=== PATIENT | female | born 1960 | race African-American/Black ===

== ENCOUNTER → 2018-06-15 14:50 | Outpatient (CLI) | payer BC, SELFPAY ==
--- NOTE | 2018-06-15 14:57 | CT_ITS ---
CT abdomen pelvis wo con CLINICAL INDICATION: Hematuria with frequent urination ITS.REASON: HEMATURIA ORDERING PHYSICIAN: Doni Bardales MD PATIENT AGE: 58 years COMPARISON: None TECHNIQUE: Axial images obtained with sagittal and coronal reformats. All CT scans at the facility use one or more dose reduction, viz: automated exposure control, ma/kV adjustment per patient size (including targeted exams where dose is matched to indication, i.e. head), or iterative reconstruction technique. PROCEDURE: Oral Contrast: None IV Contrast: None . FINDINGS: The lung bases are clear. The liver, spleen, adrenal glands, and kidneys have an unremarkable unenhanced CT appearance. No renal calculi. No ureteral calculi. There is slight increase soft tissue density adjacent to the tail the pancreas. This is of questionable clinical significance and may be due to an unopacified vessel. Follow-up with contrast may confirm if clinically warranted. No obvious pancreatic mass. This could be due to small peripancreatic fluid collection as well. No calcified gallstones apparent. Unremarkable appendix. No intestinal obstruction or free air. Urinary bladder decompressed with no stones. No pelvic mass abnormal fluid collection or focal inflammatory change No acute bony anomalies. There is mild anterolisthesis of L5 on S1 of 4 mm. IMPRESSION: 1. No renal or ureteral calculi or hydronephrosis. No obvious renal mass on this unenhanced exam. 2. Slight increased soft tissue density along the tail of the pancreas which could be related to a small peripancreatic fluid collection or unopacified vessel.
== END ==
PROVIDERS: PCP Internal Medicine Adolescent Medicine; Visit Provider Internal Medicine Adolescent Medicine
DX: R31.29 Other microscopic hematuria (principal)
CPT/HCPCS: 74176

== ENCOUNTER → 2019-08-04 16:43 | Outpatient (CLI) | payer BC, SELFPAY ==
--- NOTE | 2019-08-04 16:46 | MM_ITS ---
PROCEDURE: MM DIG SCREENING MAMM BI W/CAD Patient Age:59Y CLINICAL INDICATION: SCREENING 59-year-old. No hormones but no new complaints. Noncontributory family history COMPARISON: [facility] MAMMO SCRN DIGITL BILAT from 07/03/2011 MA MAMMO SCRN DIGITL BILAT from 08/12/2012 MA MAMMO SCRN DIGITL BILAT from 09/20/2013 MA MAMMO SCRN DIGITL BILAT from 05/30/2015 MA MAMMO SCRN DIGITL BILAT from 06/24/[id number] abdomen pelvis wo con from 06/15/2018 TECHNIQUE: Standard CC and MLO images were obtained. R2 CAD reviewed. FINDINGS: Heterogeneous fairly dense breast pattern bilaterally with overall architecture similar to previous studies. No dominant or discrete new mass. Areas of minor nodularity seen bilaterally have been seen before appear reflect baseline ductal and fibroglandular pattern in this patient. Although technique is different on the outside studies of the overall appearance of the breasts is similar with no new areas of significant concern. I would note mammography is of decreased sensitivity in breast of this density and ultrasound can be a useful complement/augment to mammography and breast of this character particularly if any palpable areas present or develope Right breast: But no new areas of significant concern. Areas of minor density and asymmetry today date back to 2012 with no significant change. Small punctate grouping of benign appearing punctate calcifications of o'clock again noted Left Breast: No new areas of significant concern but IMPRESSION: Moderately dense breast but no new areas of significant concern. Overall stable mammogram Bilateral follow-up 1 year recommended BI-RAD Category: 2 Benign Finding(s) FOLLOW-UP: 1YR 1 Year Follow-up (A letter has been sent to the patient regarding results of the study.) Dictated by: Ozzy Douglass MD 08/10/2019 08:44 Electronically signed by Ozzy Douglass MD in [place] 08/10/2019 08:44
== END ==
PROVIDERS: PCP Internal Medicine Adolescent Medicine; Visit Provider Internal Medicine Adolescent Medicine
DX: Z12.31 Encounter for screening mammogram for malignant neoplasm of breast (principal)
CPT/HCPCS: 77067

== ENCOUNTER → 2020-06-01 11:35 | Outpatient (CLI) | payer BC, SELFPAY ==
[2020-06-02 13:02] LABS: Covid-19 Nasal PCR Sendout Lex Not Detected
== END ==
PROVIDERS: Visit Provider Nurse Practitioner Family
DX: Z03.818 Encounter for observation for suspected exposure to other biological agents ruled out (principal); R05 Cough; D86.9 Sarcoidosis, unspecified
CPT/HCPCS: U0004

== ENCOUNTER 2020-10-06 12:04 | Emergency (ER) | payer BC, SELFPAY ==
[2020-10-06 12:10] VITALS: BP 136/86; PULSE 80; RESP 18; TEMP 36.8; O2SAT 98; BMI 27.1
--- NOTE | 2020-10-06 12:32 | HMH.EDUTC ---
[facility] Clinical Impression: Common cold virus Disposition: Home, Self-Care Condition on Discharge: Good Instructions: How to Avoid a Cold or Flu, Common Cold Additional Instructions: No sign of a bacterial infection. Likely viral. Viruses can take 7-14 days to run their course. Nasal saline and bulb syringe or nose Chapis to remove nasal drainage to help with nasal congestion. Hard to eat, drink, sleep with nasal congestion so important to keep this cleaned out. Monitor temp. Tylenol or Motrin as needed for pain or fever Encourage fluids, water, Gatorade, Powerade, Pedialyte if infant/toddler/child Warm salt water gargles Warm fluids Sore throat lozenges Sleep elevated Humidifier/vaporizer Your covid swab was sent. These results are typically sent to the primary care. Be sure you follow-up in 2-3 days if no improvement so we can review the results and treat if necessary if you do not have a primary care, I recommend to get 1 but in the meantime, call for results. Follow-up immediately for new or worsening symptoms or no noticeable improvement over the next 48-72 hours. isolate until test results are known to be neg Referrals: Doni Bardales MD [Primary Care Provider] - Time of Disposition: 12:35 Medical Decision Making - Manan Inquiry Pt receiving controlled substance: No Vital Signs: 10/06/20 12:10 Temperature 98.2 F Temperature Source Oral Pulse Rate [Right Brachial] 80 Respiratory Rate 18 Blood Pressure [Right Arm] 136/86 Blood Pressure Mean [Right Arm] 102 Blood Pressure Source [Right Arm] Automatic Cuff Blood Pressure Position [Right Arm] Sitting 02 Sat by Pulse Oximetry 98 Oxygen Delivery Method Room Air Orders (Tests/Meds): ORDERS Category Date Time Status Covid-19 Nasal PCR Sendout [facility] 10/06/20 12:09 Ordered [facility] H[place] - General Chief complaint: [facility] Stated complaint: covid test Time Seen by Provider: 10/06/20 12:36 Mode of Arrival: Ambulatory Source of Information: Patient Limitations: No Limitations Description of Symptoms (Recalled from Triage Doc. by RN): PATIENT REQUESTING COVID TEST. C/O COUGH. DENIES EXPOSURE HEENT Symptoms (Recalled from RN notes): No Resp Symptoms (Recalled from RN notes): Yes Skin Symptoms (Recalled from RN notes): No MS Symptoms (Recalled from RN notes): No Functional Status (Recalled from RN notes): WNL - History of Present Illness Provider Complaint: 60 yr old female presents for covid test. pt states she only has a scratchy throat but would like to be tested. - Related Data Home Medications Medication Instructions Recorded Confirmed acetaminophen 325 mg capsule 325 mg PO Q6H PRN 07/15/18 lisinopril 2.5 mg tablet 2.5 mg PO DAILY 07/15/18 simvastatin 5 mg tablet 5 mg PO QHS 07/15/18 verapamil 40 mg tablet 40 mg PO ONCE tab 07/15/18 Allergies Allergy/AdvReac Type Severity Reaction Status Date / Time Sulfa (Sulfonamide Allergy Unknown Verified 10/06/20 12:28 Antibiotics) sulfamethoxazole Allergy Unknown Verified 10/06/20 12:28 trimethoprim Allergy Unknown Verified 10/06/20 12:28 tuberculin,PPD,multi-puncture Allergy Unknown I-RASH Verified 10/06/20 12:28 - Worker's Comp Is this a Worker's Comp case?: No [facility] History - Hepatitis A Screen Drug use history?: No High risk sexual behaviors?: No History of sexually transmitted infection?: No Currently employed?: No Childcare worker?: No Do you have indoor plumbing?: Yes Do you have electricity?: Yes Attestation statement:: This patient has been screened for Hepatitis A risk factors. I have reviewed the patient's past medical history: Yes - Social History Smoking Status: Smoker, status unknown Alcohol Intake: never Occupational Status: other ROS Obtained: Yes Systems reviewed as appropriate & no additional complaints - Constitutional Constitutional: Reports system reviewed and no additional complaints, except as docu,
[2020-10-06 12:36] VITALS: BP 136/86; PULSE 80; RESP 18; TEMP 36.8; O2SAT 98
[2020-10-07 09:07] LABS: Covid-19 Nasal PCR Sendout UK Not Detected
== END 2020-10-06 12:40 | disposition home or self-care (01) ==
PROVIDERS: Emergency Provider Nurse Practitioner Family; PCP Internal Medicine Adolescent Medicine
DX: Z20.828 Contact with and (suspected) exposure to other viral communicable diseases (principal); J00 Acute nasopharyngitis [common cold]; I10 Essential (primary) hypertension; E78.5 Hyperlipidemia, unspecified
CPT/HCPCS: 99201; U0003

== ENCOUNTER → 2021-04-04 14:19 | Outpatient (CLI) | payer BC, SELFPAY ==
--- NOTE | 2021-04-04 14:24 | XR_ITS ---
PROCEDURE: XR CHEST 2V CLINICAL HISTORY: COUGH COMPARISON: No exams were available for comparison FINDINGS: The cardiomediastinal silhouette and pulmonary vascularity are within normal limits. The lungs are clear without infiltrates, suspicious nodules, or pleural effusions. No acute bony abnormalities. IMPRESSION: No acute findings. Dictated by: Vick Sands MD 04/04/2021 14:42 Vick Sands MD in [place] 04/04/2021 14:42
== END ==
PROVIDERS: PCP Internal Medicine Adolescent Medicine; Visit Provider Internal Medicine Adolescent Medicine
DX: R05 Cough (principal)
CPT/HCPCS: 71046

== ENCOUNTER → 2021-08-21 09:52 | Outpatient (CLI) | payer BC, SELFPAY | PROVIDERS: PCP Internal Medicine Adolescent Medicine; Visit Provider Internal Medicine Adolescent Medicine | DX: U07.1 COVID-19 (principal); Z23 Encounter for immunization | CPT/HCPCS: 96365 ==

== ENCOUNTER 2021-08-21 10:18 | Emergency (ER) | payer BC, SELFPAY ==
[2021-08-21] VITALS (8 sets, daily range): BP systolic 132–150; BP diastolic 76–83; PULSE 61–70; RESP 16–22; TEMP 37.1–37.2; O2SAT 84–95; BMI 30.4
--- NOTE | 2021-08-21 10:42 | XR_ITS ---
PROCEDURE: XR CHEST PORTABLE CLINICAL HISTORY: SOA, low O2 sats COMPARISON: CR XR CHEST 2V from 04/04/[address] ANGIO CHEST PE PROTOCOL from 08/21/2021 FINDINGS: The cardiomediastinal silhouette and pulmonary vascularity are within normal limits. Patchy infiltrates are present in both lower lobes left more extensive than right with atelectatic changes in the left lower lobe. No evidence of pneumothorax or pleural effusion. No acute bony anomalies IMPRESSION: Bilateral pneumonia left more extensive than right with left-sided atelectatic changes. Dictated by: Vick Sands MD 08/21/2021 11:47 Vick Sands MD in [place] 08/21/2021 11:47
--- NOTE | 2021-08-21 10:45 | PC.NURSE ---
Pt placed on nasal cannula at 5lpm and sats increased to 91%.
--- NOTE | 2021-08-21 10:49 | HMH.EDGENADL ---
ED Disposition Clinical Impression: Pneumonia due to COVID-19 virus, Hypoxia Disposition: Home, Self-Care Condition on Discharge: Fair Instructions: DI for COVID-19 (Suspected or Confirmed ) Additional Instructions: Oxygen as ordered. Continue Decadron as prescribed. Dr. Bardales's office will contact you tomorrow for a telehealth visit. Return to the emergency department if worsening shortness of breath. COVID-19 Isolation: Isolate yourself for a MINIMUM of 10 days: What to do: Monitor your symptoms. If you have an emergency warning sign (including trouble breathing), seek emergency medical care immediately. Stay in a separate room from other household members, if possible. Use a separate bathroom, if possible. Avoid contact with other members of the household and pets. Don?t share personal household items, like cups, towels, and utensils. Wear a mask when around other people if able. You can be around others AFTER: 10 days since symptoms first appeared AND 24 hours with no fever without the use of fever-reducing medications AND Other symptoms of COVID-19 are improving Referrals: Doni Bardales MD [Primary Care Provider] - - Critical Care Critical Care Time: No Attestation: On 08/21/21, the high probability of a clinically significant, sudden or life threatening deterioration of the following system(s) required my full and direct attention, intervention and personal management. The time I documented below is in addition to time spent performing reported procedures but includes the following listed in this critical care notation. Medical Decision Making - Manan Inquiry Pt receiving controlled substance: No Vital Signs: 08/21/21 10:19 08/21/21 11:00 Temperature 98.9 F Temperature Source Oral Pulse Rate 70 Pulse Rate [Right] 66 Respiratory Rate 22 Blood Pressure 140/79 Blood Pressure [Right Arm] 136/82 Blood Pressure Mean [Right Arm] 100 Blood Pressure Source [Right Arm] Automatic Cuff Blood Pressure Position [Right Arm] Sitting 02 Sat by Pulse Oximetry 84 L 94 L Oxygen Delivery Method Room Air Nasal Cannula Oxygen Flow Rate (LPM) 5 - Lab Data Lab Results 08/21/21 10:25: WBC 8.8, RBC 4.46, Hgb 12.2, Hct 37.3, MCV 83.5, MCH 27.4, MCHC 32.8, RDW 13.8, Plt Count 354, MPV 8.5, Neut % (Auto) 85.1 H, Lymph % (Auto) 10.4, [place] % (Auto) 4.2, Eos % (Auto) 0.0 L, Baso % (Auto) 0.2, Neut # (Auto) 7.5, Lymph # (Auto) 0.9, [place] # (Auto) 0.4, Eos # (Auto) 0.0, Baso # (Auto) 0.0, Total Counted 100, Neutrophils % (Manual) 85 H, Lymphocytes % (Manual) 10, Monocytes % (Manual) 5, Platelet Estimate Normal, RBC Morphology Normal 08/21/21 10:25: Sodium 141, Potassium 3.5, Chloride 102, Carbon Dioxide 29, Anion Gap 13.5, BUN 21 H, Creatinine 0.70, Estimated Creat Clear 66, Estimated GFR 85, Est GFR ( Amer) 102, Glucose 142 H, Calcium 9.2, Total Bilirubin 0.3, AST 62 H, ALT 43, Alkaline Phosphatase 85, Troponin I < 0.01, Total Protein 8.1, Albumin 4.2, Globulin 3.9 H, Albumin/Globulin Ratio 1.1 08/21/21 11:06: SARS-CoV-2 (PCR) Detected A, Influenza A Untype (PCR) Not detected, Influenza Type B (PCR) Not detected Result diagrams: 08/21/21 10:25 08/21/21 10:25 Orders (Tests/Meds): ED MEDICATIONS Discontinued Medications Generic Name Dose Route Start Last Admin Trade Name Freq PRN Reason Stop Dose Admin Dexamethasone Sodium Phosphate 10 mg 08/21/21 12:10 Dexamethasone 4mg/Ml 1ml Vial IV 08/21/21 12:11 ONCE ONE Iopamidol 70 ml 08/21/21 11:31 08/21/21 11:25 Iopamidol-370 (76%);100ml Bottle IV 08/21/21 11:32 70 ml ONCE ONE Administration Sodium Chloride 40 ml 08/21/21 11:31 08/21/21 11:25 0.9 % Sodium Chloride 50 Ml Vial IV 08/21/21 11:32 40 ml ONCE ONE Administration Sodium Chloride 10 ml 08/21/21 11:31 08/21/21 11:25 Sodium Chloride 0.9% 10ml Syr (Rad Only) IV 08/21/21 11:32 10 ml ONCE ONE Administration ORDERS C
--- NOTE | 2021-08-21 10:52 | CT_ITS ---
PROCEDURE: CT ANGIO CHEST PE PROTOCOL CLINCIAL INDICATION: covid 19, hypoxia, r/o PE COMPARISON: No exams were available for comparison TECHNIQUE: IV Contrast: 70ML Isovue 370 Axial images obtained with sagittal and coronal reformats. All CT scans at the facility use one or more dose reduction, viz: automated exposure control, ma/kV adjustment per patient size (including targeted exams where dose is matched to indication, i.e. head), or iterative reconstruction technique. FINDINGS: HEART AND MEDIASTINAL STRUCTURES: No definite pulmonary embolus. Soft tissue density noted along the left lateral aspect of the main pulmonary artery felt to be related to pulsation artifact. Not typical for pulmonary embolus. No evidence of aortic aneurysm or dissection. No mediastinal or hilar mass or adenopathy. LUNGS AND PLEURAL SPACES: Multifocal bilateral ground-glass opacities consistent with Covid19 pneumonia with atelectatic changes in the lung bases and along the left lower lobe posteriorly. No evidence of pneumothorax or pneumomediastinum. No effusions. The multifocal infiltrates could obscure an underlying lung lesion. BONY STRUCTURES: No acute bony abnormalities apparent. UPPER ABDOMEN: Unremarkable. ADDITIONAL FINDINGS: No other significant abnormalities. IMPRESSION: No definite pulmonary embolus. Bilateral multifocal ground-glass infiltrates with atelectasis consistent with Covid19 pneumonia Dictated by: Vick Sands MD 08/21/2021 11:44 Vick Sands MD in [place] 08/21/2021 11:44
[2021-08-21 10:54] LABS: Basophils % 0.2 % (0.1-2.0); Hematocrit 37.3 % (37.0-47.0); Hemoglobin 12.2 g/dL (12.2-16.2); Lymphocytes # 0.9 K/mm3 (0.7-4.5); Lymphocytes % 10.4 % (10-50); Mean Corpuscular HGB Conc 32.8 g/dL (31.8-35.4); Mean Corpuscular Hemoglobin 27.4 pg (27.0-31.2); Mean Corpuscular Volume 83.5 fl (81-99); Mean Platelet Volume 8.5 fl (7.4-10.4); Monocytes # 0.4 K/mm3 (0.1-1.0); Monocytes % 4.2 % (1.7-9.3); Neutrophils # 7.5 K/mm3 (1.8-7.8); Neutrophils % 85.1 % (37.0-80.0); Platelet Count 354 K/mm3 (142-424); Red Blood Count 4.46 M/mm3 (4.20-5.40); Red Cell Distribution Width 13.8 % (11.5-17.5); White Blood Count 8.8 K/mm3 (4.8-10.8)
[2021-08-21 10:57] LABS: Alanine Aminotransferase 43 U/L (12-78); Albumin Level 4.2 g/dl (3.5-5.0); Albumin/Globulin Ratio 1.1 (1.1-1.8); Alkaline Phosphatase 85 U/L (38-126); Anion Gap 13.5 mEq/L (5-15); Aspartate Amino Transferase 62 U/L (14-36); Bilirubin,Total 0.3 mg/dl (0.2-1.3); Blood Urea Nitrogen 21 mg/dl (7-17); Calcium 9.2 mg/dl (8.4-10.2); Carbon Dioxide 29 mmol/L (22.0-30.0); Chloride 102 mmol/L (98-107); Creatinine Clearance Estimated 66 mL/min (50-200); Estimated Glomerular Filt Rate 85 ml/min (>60); GFR (African American) 102 ML/MIN (>60); Globulin 3.9 g/dL (1.3-3.2); Glucose 142 mg/dl (74-100); Potassium 3.5 mmoL/L (3.5-5.1); Sodium 141 mmol/L (136-145); Total Protein,Serum 8.1 g/dl (6.3-8.2)
[2021-08-21 11:07] LABS: MANUAL DIFFERENTIAL MANUAL DIFFERENTIAL (MANUAL DIFF)
[2021-08-21 11:10] LABS: Troponin I < 0.01 ng/ml (0.00-0.034)
[2021-08-21 11:11] LABS: Influenza A, PCR Not Detected (NotDetected); Influenza B, PCR Not Detected (NotDetected)
[2021-08-21 11:13] LABS: Lymphocytes % 10 % (10-50); Monocytes % 5 % (2-9); Neutrophils % 85 % (42-76); Platelet Estimate Normal; RBC Morphology Normal; Total Cells Counted 100
--- NOTE | 2021-08-21 11:38 | PC.NURSE ---
pt returned from CT
[2021-08-21 11:50] LABS: Coronavirus 19, PCR Detected (NotDetected)
--- NOTE | 2021-08-21 12:01 | PC.NURSE ---
Called Dr. Bardales office. Advised he would call back
[2021-08-21 12:28] LABS: Erythrocyte Sedimentation Rate 127 mm/hr (0-30)
--- NOTE | 2021-08-21 12:42 | SW/DCPLANNER ---
Addendum entered by Rubina Braun 08/21/21 13:28: Ramona Landa has stated that patient information/order has been reviewed and will be delivered to ED. Original Note: Patient information/order has been faxed to [facility] for home O2 and portable tank at 5L. I will follow up with [facility] once patient information is reviewed.
--- NOTE | 2021-08-21 12:47 | PC.NURSE ---
care management arranging home oxygen for pt.
--- NOTE | 2021-08-21 13:43 | PC.NURSE ---
[facility] arrived and provided pt with O2 tank and nasal cannula and gave instruction on the tank and use. Pt also received incentive spirometer from respiratory therapy and was educated on use. Pt able to return demonstration. Upon discharge I explained to pt that if she developed any severe SOA or chest pain/tightness she needed to return to the emergency room DEJAN and if she was unable to get here by POV then she needed to call 911 immediately. Pt understood instructions. Pt was able to get up and dress herself and reapply O2 correctly. Pt maintained sats in the 90's while on the O2. PT able to ambulate without assistance out of ED
[2021-08-21 14:14] LABS: C-Reactive Protein 29.3 mg/L (0-4)
== END 2021-08-21 14:22 | disposition home or self-care (01) ==
PROVIDERS: Emergency Provider Emergency Medicine; PCP Internal Medicine Adolescent Medicine
DX: U07.1 COVID-19 (principal); J12.82 Pneumonia due to coronavirus disease 2019; R09.02 Hypoxemia; I10 Essential (primary) hypertension; E78.5 Hyperlipidemia, unspecified
CPT/HCPCS: 71045; 71275; 80053; 84484; 85007; 85025; 85651; 86140; 96374; 99284; C9803; Q9967; U0003; U0005

== ENCOUNTER → 2021-11-14 14:47 | Outpatient (CLI) | payer BC, SELFPAY | PROVIDERS: Visit Provider Nurse Practitioner | DX: Z20.822 Contact with and (suspected) exposure to COVID-19 (principal) | CPT/HCPCS: C9803; U0003; U0005 ==

== ENCOUNTER 2022-01-20 15:00 | Outpatient (RCR) | payer BC, SELFPAY ==
--- NOTE | 2021-11-19 15:31 | HMH.PTOPEV ---
PT Outpatient Evaluation Rehab PT Outpatient Evaluation Start: 11/19/21 15:21 Freq: Status: Active Protocol: Document 11/19/21 15:21 RONI (Rec: 11/19/21 15:31 RONI [id number]) Electronically Signed By Toni Raymond, PT 11/19/21 15:21 Outpatient Therapy Subjective History Subjective History Pt reports insidious onset right knee pain beginning ~2 months ago. Pt reports medial aspect right knee pain, with clicking/popping, some referred pain into medial HS and calf mm areas. Pt reports stiffness in right knee with [id number] t/f after prolonged sitting. Chief Complaint Pain,Stiff,Clicks,Swelling, Weakness Symptom Type Ache,Sharp,Dull Symptoms Relieved By Rest/Positioning,Prescription Meds Symptoms Aggravated By Standing,Physical Activity, Walking Prior Functional Limitations Housework,Standing,Squatting, Walking,Stairs Current Functional Limitations Housework,Standing,Squatting, Walking,Stairs Symptom Description Constant but Variable Level of pain today (0-10) 5 Pain scale - at its best (0-10) 4 Pain scale - at its worst (0-10) 7 Hip/Knee Eval Gait Observation General Gait Pattern Observation Antalgic Gait Assistive Device Assistive Devices None / NA Palpation Tenderness right Knee Palpation Finding Tenderness Knee Palpation Overall Comment medial jt line @MCL 2-3/4, pes anserine 3/4, semimem. 3/4 MMT Hip Flexion Strength Grade 4 Good Hip Abduction Strength Grade 4- Good- Hip Adduction Strength Grade 4- Good- Hip Extension Strength Grade 4 Good Hip External Rotation Strength Grade 4 Good Hip Internal Rotation Strength Grade 4- Good- Knee Extension Strength Grade 5 Normal Knee Flexion Strength Grade 5 Normal ROM left Knee Flexion Active Range of Motion ( 0-130 degrees) right Knee Flexion Active Range of Motion ( 0-121 degrees) Knee ROM Limitations Soft Tissue Tightness,Pain Effusion joint effusion knee exam standard right Mid - Patellar Circumerential Measure ( 43 cm) Special Tests Knee Valgus Stress Test Negative Left,Positive Right Outpatient Therapy Assessment Impairments Problems/Impairmments Palpation Tenderness,Impaired Range of Motion,Impaired
--- NOTE | 2021-12-24 16:04 | HMH.RHREAS ---
Rehab Reassessment Rehab OP Re-assessment Start: 12/24/21 15:22 Freq: Status: Active Protocol: Document 12/24/21 16:00 RONI (Rec: 12/24/21 16:04 RONI [id number]) Electronically Signed By Toni Raymond, PT 12/24/21 16:00 Rehab Re-assessment Subjective Subjective Pt reports improved frequency in right knee pain since I eval, and reports 5-6/10 right knee pain (medial aspect) w/ activity on VAS Objective Objective Notes AROM: RIGHT KNEE FLX 0-130 MMT: R HIP FLX 4+/5, R HIP ABD 4-4+/5, R HIP ADD 4/5 W/PAIN, R HIP EXT 4/5 TTP: R PES ANSERINE 2/4, R MCL 2/4, R MEDIAL HS INSERTION 2/ 4 GAIT: WFL ON LEVEL TERRAIN Assessment Progress Assessment Slower Than Expected Assessment Notes IMPROVED ROM, STRENGTH, GAIT, AND SLIGHT IMPROVEMENT IN TTP Patient goals met STG'S 06/25 LTG'S 01/25 Goals Not Met STG'S 12/26, LTG'S 07/28 Plan Plan Pt to continue w/skilled P.T. to make further improvements in strength, TTP, ROM, and gait to allow for optimal function Frequency of Therapy 2-3x/wk Duration of therapy 3-4wks Time and Billing Re-Eval Time 15 Re-Eval Billing Units 1 PHYSICIAN CERTIFICATION: I certify the specified therapy services for Bárbara Agustin are required, authorized, and reviewed every 30 days.
== END 2022-01-20 15:05 | disposition home or self-care (01) ==
LOC: PT 15:00
PROVIDERS: PCP Internal Medicine Adolescent Medicine; Visit Provider Internal Medicine Adolescent Medicine
DX: M25.561 Pain in right knee (principal)
CPT/HCPCS: 97010; 97014; 97033; 97035; 97110; 97163; 97164; G0283

== ENCOUNTER 2022-08-13 00:40 | Inpatient (IN) | payer BC, SELFPAY ==
[2022-08-13] VITALS (46 sets, daily range): BP systolic 99–141; BP diastolic 60–78; PULSE 60–109; RESP 16–29; TEMP 36.7–37.7; O2SAT 96–100; BMI 30.9; BMI 31.2
--- NOTE | 2022-08-13 00:47 | PC.NURSE ---
MD at bedside during triage
--- NOTE | 2022-08-13 01:02 | HMH.EDGENADL ---
Discharge Plan Disposition Patient Disposition: Admitted As Inpatient Chief Complaint: Dental/Oral Prescriptions Prescriptions: No Action Suprep Bowel Prep Kit 17.5-3.13-1.6 gram recon soln See Rx Instructions PO .COMPLEX Qty: 177 0RF Rx Instructions: DILUTE; drink full amount early evening before AND next morning at least 2 hr before procedure; follow w 32 oz. water PO Referrals Follow up/Referrals: Doni Bardales MD [Primary Care Provider] - See instructions Clinical Impressions Clinical Impression: Angioedema due to angiotensin converting enzyme inhibitor (ANGELICA-I), Acute airway obstruction Instructions Patient Instructions: DI for Angioedema Discharge ED Provider: Anastacio Burk General Adult HPI General Chief complaint: Dental/Oral Stated complaint: Tongue swelling Time Seen by Provider: 08/13/22 01:02 Mode of Arrival: Ambulatory Source of Information: Patient and Medical Record Limitations: No Limitations Description of Symptoms (Recalled from ER Triage Doc. by RN): Pt reports tounge swelling that started at 7pm and has gotten worse. Swelling is more prominent on the left side of tounge. Pt reports having no new allergies, no known contact with known allergies. She says she had some congestion and a cough and was given promethazine from PCP. History of Present Illness HPI narrative: pt with swollen tongue which started 1900 and has increased - no other c/o and is on lisinopril - no other c/o Onset (ago): hour(s) Location: mouth Severity: moderate Associated symptoms: denies other symptoms Related Data Home Medications Medication Instructions Recorded Confirmed acetaminophen 325 mg capsule 325 mg PO Q6H PRN 07/15/18 lisinopril 2.5 mg tablet 2.5 mg PO DAILY 07/15/18 simvastatin 5 mg tablet 5 mg PO QHS 07/15/18 verapamil 40 mg tablet 40 mg PO ONCE 07/15/18 Previous Rx's Medication Instructions Recorded sodium,potassium,mag sulfates 17.5 See Rx Instructions PO .COMPLEX 01/13/22 gram-3.13 gram-1.6 gram oral soln #177 mL (Suprep Bowel Prep Kit) Allergies Allergy/AdvReac Type Severity Reaction Status Date / Time Sulfa (Sulfonamide Allergy Unknown Verified 08/21/21 10:47 Antibiotics) sulfamethoxazole Allergy Unknown Verified 08/21/21 10:47 trimethoprim Allergy Unknown Verified 08/21/21 10:47 tuberculin,PPD,multi-puncture Allergy Unknown I-RASH Verified 08/21/21 10:47 PFSH PFSH Social History (Updated 08/13/22 @ 03:38 by Zack Phillips CRNA) Smoking Status: Never smoker alcohol intake: never substance use type: denies use current occupational status: other Travel in the last 8 weeks: None ROS Obtained: Yes All systems reviewed & no additional complaints except as documented Physical Exam General General appearance: alert Head Head exam: normocephalic Eye Eye exam: Present PERRL and EOMI ENT ENT exam: Present mucous membranes moist and other (swollen tongue - airway patent ) Neck Neck exam: Present full ROM Respiratory Respiratory exam: Present normal lung sounds bilaterally; Absent respiratory distress Cardiovascular Cardiovascular exam: Present regular rate Abdominal Exam Abdominal exam: Present soft Extremities Exam Extremities exam: Present full ROM Neurological Exam Neurological exam: Present alert and CN II-XII intact Skin Skin exam: Absent rash Lymphatic Lymphatic Findings: no adenopathy Medical Decision Making Medical Records Medical records reviewed: Yes I reviewed the patient's medical records. Manan Inquiry Pt receiving controlled substance: No Vital Signs: 08/13/22 00:47 08/13/22 01:00 08/13/22 02:00 Temperature 99.9 F H Temperature Source Oral Pulse Rate 98 H 78 Pulse Rate [Right Radial] 109 H Respiratory Rate 16 17 Blood Pressure 117/73 122/78 Blood Pressure [Right Arm] 141/70 H Blood Pressure Mean [Right Arm] 93 Blood Pressure Source [Right Arm] Automatic Cuff Blood Pressure Position [Right
--- NOTE | 2022-08-13 01:09 | PC.NURSE ---
phone call to [facility], spoke with Leah, she is having Dr. maciel. Dr. Burk on phone with Dr. Jolly
--- NOTE | 2022-08-13 02:14 | PC.NURSE ---
Wm speaking to Bradley at this time.
--- NOTE | 2022-08-13 02:40 | PC.NURSE ---
Pt was moved to room 2 for better visualization and possible intubation.
[2022-08-13 02:53] LABS: Basophils # 0.1 K/mm3 (0-0.2); Basophils % 1.1 % (0.1-2.0); Eosinophils # 0.3 K/mm3 (0.0-0.4); Eosinophils % 2.8 % (0.1-12.0); Hematocrit 38.9 % (37.0-47.0); Hemoglobin 12.2 g/dL (12.2-16.2); Lymphocytes # 4.2 K/mm3 (0.7-4.5); Mean Corpuscular HGB Conc 31.4 g/dL (31.8-35.4); Mean Corpuscular Hemoglobin 26.8 pg (27.0-31.2); Mean Corpuscular Volume 85.2 fl (81-99); Mean Platelet Volume 8.2 fl (7.4-10.4); Monocytes # 0.4 K/mm3 (0.1-1.0); Monocytes % 4.2 % (1.7-9.3); Neutrophils # 4.4 K/mm3 (1.8-7.8); Platelet Count 411 K/mm3 (142-424); Red Blood Count 4.57 M/mm3 (4.20-5.40); Red Cell Distribution Width 13.9 % (11.5-17.5); White Blood Count 9.3 K/mm3 (4.8-10.8)
[2022-08-13 02:54] LABS: Chloride 96 mmol/L (98-107); Sodium 143 mmol/L (136-145)
--- NOTE | 2022-08-13 02:54 | PC.NURSE ---
Spoke to [facility] regarding order for sub-q epi. Was instructed to use the 1mg/1ml ampule and the dose to be given is 0.3mg. Verified with WU Jimenez RN and .
[2022-08-13 02:57] LABS: Blood Urea Nitrogen 15 mg/dl (7-17); Creatinine Clearance Estimated 69 mL/min (50-200); Estimated Glomerular Filt Rate 63 ml/min (>60); GFR (African American) 76 ML/MIN (>60)
[2022-08-13 02:58] LABS: Anion Gap 15.9 mEq/L (5-15); Calcium 9.4 mg/dl (8.4-10.2); Carbon Dioxide 34 mmol/L (22.0-30.0); Glucose 104 mg/dl (74-100)
[2022-08-13 03:01] LABS: Potassium 2.9 mmoL/L (3.5-5.1)
--- NOTE | 2022-08-13 03:21 | PC.NURSE ---
On phone with Leah with transfer center per Dr. Burk's request now that patient is intubated
--- NOTE | 2022-08-13 03:25 | XR_ITS ---
PROCEDURE INFORMATION: Exam: XR Chest Exam date and time: 08/13/2022 3:31 AM Age: 62 years old Clinical indication: Device placement; Ett placement (vent status); Additional info: Post intubation TECHNIQUE: Imaging protocol: Radiologic exam of the chest. Views: 1 view. COMPARISON: CR XR CHEST PORTABLE 08/21/2021 11:39 AM FINDINGS: Tubes, catheters and devices: New endotracheal tube tip is 3.5 cm above the raul. Lungs: Low lung volumes. Few residual bilateral perihilar opacities. Interval resolution of previously seen bilateral lower lung field patchy opacities. Pleural spaces: No pneumothorax. No pleural effusion. Heart/Mediastinum: Heart not enlarged. Bones/joints: Bones are unremarkable. IMPRESSION: Residual bilateral perihilar infiltrates.
--- NOTE | 2022-08-13 03:27 | EXP.ANES.CKL ---
[facility] Social History Smoking Status: Never smoker alcohol intake: never substance use type: denies use current occupational status: other Travel in the last 8 weeks: None [facility] Anesthesia Checklist Patient Identification Patient Identification: Arm Band Structural Data Admitted From: Emergency Dept Planned Operative Procedure/s: Emergent Intubation Consent for Planned Operative Procedure(s) Verified: Yes Verified Documents: Surgical Consent and History and Physical Additional verifications Anesthesia Reactions: No Airway Assessment C-Spine Mobility Assessed: Yes (Tongue severely swollen d/t ANGELICA induced angioedema) TMJ Mobility Assessed: Yes Dentition: Poor Dentition Neurological Assessment Level of Consciousness: Awake and Alert Anesthesia Plan Anesthesia Risk discussed: Yes Anesthesia Plan: Verified ASA Class: III (E) Anesthesia Type: None (Emergent Intubation) Preoperative Comments Pre-Operative Comments: ANGELICA induced angioedema. Called for emergent intubation. Plan of care discussed with pt and pt verbalized understanding. Multiple attempts at awake intubation with glidescope/bougie + versed/ketamine/cetacaine spray but unsuccessful. After ~15-20 minutes, decision made for pt to go to sleep with propofol and succinylcholine. 100 mg Propofol IV, 120 mg Succinylcholine, unable to get a view with glidescope #3, so #4 LMA inserted with success d/t O2 sats dropping. 02 up to 100%, LMA then removed, DVL with Layne 2 blade, Grade 3-4 view, Bougie passed through vocal cords and then 7.0 ETT passed over bougie. + bilateral breath sounds, + ETCO2. ETT taped at 22cm at the lip on the right side.
--- NOTE | 2022-08-13 03:35 | PC.NURSE ---
[facility] transfer center advises they would work on getting pt a bed
[2022-08-13 03:48] LABS: Coronavirus 19, PCR Not Detected (NotDetected); Influenza A, PCR Not Detected (NotDetected); Influenza B, PCR Not Detected (NotDetected)
--- NOTE | 2022-08-13 04:12 | XR_ITS ---
PROCEDURE INFORMATION: Exam: XR Abdomen Exam date and time: 08/13/2022 4:26 AM Age: 62 years old Clinical indication: Device placement; Gi device; Other: Og tube; Additional info: Og placement TECHNIQUE: Imaging protocol: Radiologic exam of the abdomen. Views: Frontal supine view of the abdomen. 1 View. COMPARISON: ABDPELWO CT abdomen pelvis wo con 06/15/2018 3:07 PM FINDINGS: Tubes, catheters and devices: New nasogastric tube in good position with tip and side hole overlying the left upper quadrant of the abdomen and stomach. Gastrointestinal tract: Bowel gas pattern unremarkable. Bones/joints: Unremarkable. Other findings: Overlying monitoring cables. IMPRESSION: Non acute findings.
--- NOTE | 2022-08-13 05:35 | PC.NURSE ---
attempted to call at this time. No answer.
--- NOTE | 2022-08-13 05:53 | PC.NURSE ---
New verbal orders from Wm to stop propofol gtt and start fentanyl gtt and versed gtt per protocol
--- NOTE | 2022-08-13 05:58 | PC.NURSE ---
12Fr F/C inserted at this time.
[2022-08-13 06:02] LABS: Microscopic, Urine URINE MICROSCOPIC (MICROSCOPIC)
[2022-08-13 06:09] LABS: Appearance,Urine CLEAR (Clear); Bilirubin,Urine Negative (Negative); Blood, Urine TRACE-I (Negative); Color,Urine YELLOW (Yellow); Glucose,Urine (UA) Negative (Negative); Ketones,Urine 1+ (Negative); Leukocyte Esterase,Urine Negative (Negative); Nitrate,Urine Negative (Negative); Protein,Urine Negative (Negative)
--- NOTE | 2022-08-13 06:20 | PC.NURSE ---
Attempted to call son and again with no reply. Message was left with .
[2022-08-13 06:31] LABS: Bacteria,Urine Trace /lpf
[2022-08-13 06:32] LABS: Hyaline Casts,Urine Occasional #/lpf (0); RBC,Urine Occasional #/hpf (0-3)
--- NOTE | 2022-08-13 06:32 | PC.NURSE ---
Able to get ahold of and obtain over the phone consent for FFP. Verified with ADE Ruiz.
[2022-08-13 06:41] LABS: ABG Base Excess 7.8 mmol/L (-2.4-2.3); ABG HCO3 27.8 mmhg (22.0-26.0); ABG Oxygen Saturation 99 % (90-100); ABG PO2 105.1 mmhg (80-100); ABG TCO2 28.5 mmhg (23-27)
[2022-08-13 06:46] LABS: Allen's Test ACCEPTABLE; Oxygen 35 %; PEEP 5; Source R RADIAL; Tidal Volume 420; Vent Rate 20
--- NOTE | 2022-08-13 07:16 | PC.NURSE ---
Propofol stopped and fentanyl gtt and versed gtt started at this time per JAN.
--- NOTE | 2022-08-13 07:29 | PC.NURSE ---
0252-YASHIRA Carlson at [facility] for intubation. Pt has signed procedure consent. Meds given by YASHIRA during procedure (see procedure note). 0319- Pt intubated after multiple attempts. 7.0ett is secure at 22cm at the lip. Chest xray taken at this time w/ MD stating placement looks good. Will await radiology report. 16f OG inserted and clamped. Awaiting radiology report to confirm placement. 14f smalls inserted by ADE Bush (see note) 0328-Propofol gtt started at 10mcg/kg/min. Titrated Q5min until pt reached 45mcg/kg/min w/o desired response. Pt RASS score +2 to +1. CPOT of 6to7. MD verbal orders to change to Versed gtt and fentanyl gtt.
--- NOTE | 2022-08-13 07:39 | PC.NURSE ---
[facility] called and wanted to know if they were still needed on stand by. the answerr to that question was yes. still neeed to be on standby
--- NOTE | 2022-08-13 07:41 | PC.NURSE ---
[facility] called and advised that they needed to take a scene flight and due to the length of standby we are to call back when were ready
--- NOTE | 2022-08-13 07:49 | PC.NURSE ---
RT changed vent settings to BP=279 R=16 O2=30% PEEP=5
--- NOTE | 2022-08-13 07:51 | PC.NURSE ---
contacted at this time to check on status of pt transfer. Spoke with [facility] staff states pt is on the waiting list for an ICU bed and they have no estimated time of when a bed will be available. Notified ER .
--- NOTE | 2022-08-13 08:04 | PC.NURSE ---
FFP verified and started at 0658. Verified with ADE Dee at bedside.
--- NOTE | 2022-08-13 08:04 | PC.NURSE ---
Dr Wang called for consult with ER doc about pt
--- NOTE | 2022-08-13 08:09 | PC.NURSE ---
0800-12.5 mcg fentanyl IVP given CPOT score >3
--- NOTE | 2022-08-13 08:10 | PC.NURSE ---
notified care management of admission, spoke with Jocelynn. (per dr. delacruz pt is jayme to christine, diagnosis of angioedema and pt is intubated).
--- NOTE | 2022-08-13 08:25 | PC.NURSE ---
2nd floor called, stated to give them 40 min to move pt's around and call in a nurse.
--- NOTE | 2022-08-13 08:31 | PC.NURSE ---
0826- spoke with Dr. Bardales at this time, he gave verbal order for Solumedrol 1 gram per IV once and requested a consult to ENT Dr. Garcia. 8257- spoke with Torin in pharmacy about solumedrol order, unable to place order in the system. States he will place order and they will get it mixed for us and bring it down.
--- NOTE | 2022-08-13 08:32 | PC.NURSE ---
Pt RASS score -1 at this time Versed gtt currently at 0.1mg/kg/hr Fentanyl gtt at 37.5mcg/hr. CPOT score of 1.
--- NOTE | 2022-08-13 09:31 | PC.NURSE ---
pt son at BS, updated him on pt POC ( pt will be admitted to second floor we are waiting on her room to be ready, pt is intubated to protect her airway and we are giving her medications to sedate her), her verbalized understanding
--- NOTE | 2022-08-13 09:54 | PC.NURSE ---
dr. do at BS
--- NOTE | 2022-08-13 10:02 | EXP.PULM.CON ---
History of Present Illness History of present illness: Patient intubated and sedated. Much of the history is obtained from chart review and patient's son at bedside. Ms. Landin is a 62-year-old who presented to the hospital with worsening respiratory distress and tongue swelling with progressive worsening respiratory status and worsening tongue swelling eventually needing intubation and mechanical ventilator support and pulmonary was called for further management [facility] Medical History (Updated 08/13/22 @ 10:40 by Sheridan Bass MD) Hyperlipemia Hypertension On mechanically assisted ventilation Social History (Updated 08/13/22 @ 03:38 by Zack Phillips CRNA) Smoking Status: Never smoker alcohol intake: never substance use type: denies use current occupational status: other Travel in the last 8 weeks: None Review of Systems Review of Systems Review of systems:: unable to obtain Review of systems (narrative): Intubated and sedated Pulmonology Exam Inpatient Vital signs and Labs for Last 24 Hours: Temp Pulse Resp BP Pulse Ox FiO2 98.9 F 72 16 113/68 98 35 08/13/22 07:15 08/13/22 09:45 08/13/22 09:45 08/13/22 09:45 08/13/22 09:45 08/13/22 06:00 Laboratory Results - last 24 hr 08/13/22 01:11: WBC 9.3, RBC 4.57, Hgb 12.2, Hct 38.9, MCV 85.2, MCH 26.8 L, MCHC 31.4 L, RDW 13.9, Plt Count 411, MPV 8.2, Neut % (Auto) 47.0, Lymph % (Auto) 45.0, Mcmullen % (Auto) 4.2, Eos % (Auto) 2.8, Baso % (Auto) 1.1, Neut # (Auto) 4.4, Lymph # (Auto) 4.2, Mcmullen # (Auto) 0.4, Eos # (Auto) 0.3, Baso # (Auto) 0.1 08/13/22 01:11: Sodium 143, Potassium 2.9 L*, Chloride 96 L, Carbon Dioxide 34 H, Anion Gap 15.9 H, BUN 15, Creatinine 0.90, Estimated Creat Clear 69, Estimated GFR 63, Est GFR ( Amer) 76, Glucose 104 H, Calcium 9.4 08/13/22 02:45: Blood Type O Positive, Antibody Screen Negative 08/13/22 02:45: Blood Type O Positive 08/13/22 03:30: SARS-CoV-2 (PCR) Not detected, Influenza A Untype (PCR) Not detected, Influenza Type B (PCR) Not detected 08/13/22 05:57: Urine Color Yellow, Urine Appearance Clear, Urine pH 6.0, Ur Specific [place] 1.020, Urine Protein Negative, Urine Glucose (UA) Negative, Urine Ketones 1+, Urine Blood Trace-i, Urine Nitrate Negative, Urine Bilirubin Negative, Urine Urobilinogen 1.0, Ur Leukocyte Esterase Negative, Urine RBC Occasional, Urine WBC None, Ur Squamous Epith Cells None, Urine Bacteria Trace, Hyaline Casts Occasional 08/13/22 06:18: Blood Type Confirm O Positive 08/13/22 06:38: Specimen Source R radial, O2 % 35, ABG pH 7.70 H*, ABG pCO2 23.0 L, ABG pO2 105.1 H, ABG HCO3 27.8 H, ABG Total CO2 28.5 H, ABG O2 Saturation 99, ABG Base Excess 7.8 H, Vick Test Acceptable, Vent Rate 20, Tidal Volume 420, PEEP 5 I & O for Labs for Last 24 Hours: Intake & Output 08/10/22 08/11/22 08/12/22 08/13/22 23:59 23:59 23:59 23:59 Weight 169 lb Head: Present normocephalic and atraumatic ENT: Present normal exam Comment:: Significant tongue swelling noted. Neck: Present normal inspection and full ROM Respiratory: Present patient mechanically ventilated; Absent wheezes or crackles Cardiac: Present S1/S2, Tachycardia and radial pulses present GI: Present soft and distention; Absent tenderness or guarding Rectal (female): Present deferred (female): Present deferred Skin: Present intact; Absent cyanosis or jaundice Neuro: Absent alert, awake or oriented x 3 Comment:: Intubated and sedated Extremities: Present normal inspection; Absent clubbing or cyanosis Psychiatric: Present normal affect and cooperative Meds Home Medications and Allergies Home Medications Medication Instructions Recorded Confirmed Type amlodipine 5 mg tablet 5 mg PO DAILY Hypertension 08/13/22 08/13/22 History lisinopril 20 1 tab PO DAILY Hypertension 08/13/22 08/13/22 History mg-hydrochlorothiazide 25 mg tablet promethazine-DM 6.25 mg-15 mg/5 mL 5 ml PO Q6HP PRN Cough 08/13/22 08/13/22 History oral syrup s
--- NOTE | 2022-08-13 10:10 | HMH.PHAINT1 ---
Pharmacy Intervention Comments: MEDICATION RECONCILIATION COMPLETED ON PATIENT USING EXTERNAL FILL HISTORY FROM PHARMACY. -ALBINO ZUNIGA, ARGELIAD
--- NOTE | 2022-08-13 10:22 | PC.NURSE ---
report given to Nathalie BOOKER
--- NOTE | 2022-08-13 10:48 | PC.NURSE ---
mike lopes and mike barraza at to transport pt to second floor
--- NOTE | 2022-08-13 11:00 | PC.NURSE ---
Transported Pt from ER, with RN, to 218 Pt bagged with BVM at 100% at a rate of 10 bpm, Pt remained stable during transport. Placed Pt on ventilator once in room. Pt tolerated transport well.
--- NOTE | 2022-08-13 11:14 | PC.NURSE ---
Pt arrived to floor via stretcher @11:00
[2022-08-13 12:44] LABS: Alanine Aminotransferase 24 U/L (12-78); Albumin Level 4.1 g/dl (3.5-5.0); Albumin/Globulin Ratio 1.2 (1.1-1.8); Alkaline Phosphatase 117 U/L (38-126); Anion Gap 16.8 mEq/L (5-15); Aspartate Amino Transferase 33 U/L (14-36); Blood Urea Nitrogen 17 mg/dl (7-17); Calcium 8.9 mg/dl (8.4-10.2); Carbon Dioxide 26 mmol/L (22.0-30.0); Chloride 100 mmol/L (98-107); Creatinine Clearance Estimated 69 mL/min (50-200); Estimated Glomerular Filt Rate 84 ml/min (>60); GFR (African American) 102 ML/MIN (>60); Globulin 3.5 g/dL (1.3-3.2); Glucose 167 mg/dl (74-100); Sodium 140 mmol/L (136-145); Total Protein,Serum 7.6 g/dl (6.3-8.2)
--- NOTE | 2022-08-13 13:01 | PC.NURSE ---
[facility] CALLED FOR UPDATE ON PATIENT, NO BEDS AVAILABLE AT THIS TIME
[2022-08-13 13:03] LABS: Bilirubin,Total 0.1 mg/dl (0.2-1.3)
[2022-08-13 13:05] LABS: Potassium 2.8 mmoL/L (3.5-5.1)
--- NOTE | 2022-08-13 14:44 | P.CONPHA_ITS ---
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 converting enzyme inhibitor (ANGELICA-I) (Acute) Acute airway obstruction (Acute) On mechanically assisted ventilation (Acute) VTE Risk Labs: VTE Related Lab Results Hgb 12.2 g/dL (12.2-16.2) 08/13/22 01:11 Hct 38.9 % (37.0-47.0) 08/13/22 01:11 Plt Count 411 K/mm3 (142-424) 08/13/22 01:11 BUN 17 mg/dl (7-17) 08/13/22 12:15 Creatinine 0.70 mg/dl (0.52-1.04) D 08/13/22 12:15 Estimated Creat Clear 69 mL/min (50-200) 08/13/22 12:15 Was VTE Risk Assessment Performed: Yes VTE Score: 6 VTE Risk Level: Moderate Risk Prophylaxis VTE Prophylaxis Ordered?: Yes Types of VTE Prophylaxis: Pharmacological Pharmacologic Type: Enoxaparin
--- NOTE | 2022-08-13 15:07 | EXP.HPDC ---
General Admission date:: 08/13/22 Discharge date: 08/13/22 *Admission Date: 08/13/22 *Chief complaint: Swelling *History of present illness: Admitted from ER after intubated for tongue angioedema... stabilzed on sedative gtts... in step down ICU... see anesthesia and ER notes for details [facility] Medical History Angioedema Hyperlipemia Hypertension On mechanically assisted ventilation Family History (Updated 08/13/22 @ 11:54 by Nathalie Adrian, RN) No significant family history Social History (Updated 08/13/22 @ 11:55 by Nathalie Adrian, RN) Smoking Status: Never smoker alcohol intake: never substance use type: denies use current occupational status: other Travel in the last 8 weeks: None Exam Data for Last 24 hours Vital signs and Labs for Last 24 Hours: Temp Pulse Resp BP Pulse Ox FiO2 98.4 F 64 16 111/69 99 30 08/13/22 14:00 08/13/22 14:00 08/13/22 14:00 08/13/22 14:00 08/13/22 14:00 08/13/22 14:00 Laboratory Results - last 24 hr 08/13/22 01:11: WBC 9.3, RBC 4.57, Hgb 12.2, Hct 38.9, MCV 85.2, MCH 26.8 L, MCHC 31.4 L, RDW 13.9, Plt Count 411, MPV 8.2, Neut % (Auto) 47.0, Lymph % (Auto) 45.0, Adams % (Auto) 4.2, Eos % (Auto) 2.8, Baso % (Auto) 1.1, Neut # (Auto) 4.4, Lymph # (Auto) 4.2, Adams # (Auto) 0.4, Eos # (Auto) 0.3, Baso # (Auto) 0.1 08/13/22 01:11: Sodium 143, Potassium 2.9 L*, Chloride 96 L, Carbon Dioxide 34 H, Anion Gap 15.9 H, BUN 15, Creatinine 0.90, Estimated Creat Clear 69, Estimated GFR 63, Est GFR ( Amer) 76, Glucose 104 H, Calcium 9.4 08/13/22 02:45: Blood Type O Positive, Antibody Screen Negative 08/13/22 02:45: Blood Type O Positive 08/13/22 03:30: SARS-CoV-2 (PCR) Not detected, Influenza A Untype (PCR) Not detected, Influenza Type B (PCR) Not detected 08/13/22 05:57: Urine Color Yellow, Urine Appearance Clear, Urine pH 6.0, Ur Specific [place] 1.020, Urine Protein Negative, Urine Glucose (UA) Negative, Urine Ketones 1+, Urine Blood Trace-i, Urine Nitrate Negative, Urine Bilirubin Negative, Urine Urobilinogen 1.0, Ur Leukocyte Esterase Negative, Urine RBC Occasional, Urine WBC None, Ur Squamous Epith Cells None, Urine Bacteria Trace, Hyaline Casts Occasional 08/13/22 06:18: Blood Type Confirm O Positive 08/13/22 06:38: Specimen Source R radial, O2 % 35, ABG pH 7.70 H*, ABG pCO2 23.0 L, ABG pO2 105.1 H, ABG HCO3 27.8 H, ABG Total CO2 28.5 H, ABG O2 Saturation 99, ABG Base Excess 7.8 H, Vick Test Acceptable, Vent Rate 20, Tidal Volume 420, PEEP 5 08/13/22 12:15: Sodium 140, Potassium 2.8 L*, Chloride 100, Carbon Dioxide 26, Anion Gap 16.8 H, BUN 17, Creatinine 0.70 D, Estimated Creat Clear 69, Estimated GFR 84, Est GFR ( Amer) 102 D, Glucose 167 H D, Calcium 8.9, Total Bilirubin 0.1 L, AST 33, ALT 24, Alkaline Phosphatase 117, Total Protein 7.6, Albumin 4.1, Globulin 3.5 H, Albumin/Globulin Ratio 1.2 I & O for Last 24 hours: Intake & Output 08/11/22 08/12/22 08/13/22 08/14/22 11:59 11:59 11:59 11:59 Intake Total 159 / 159 Output Total 200 / 270 170 / 170 Balance -195 / -219 -11 Weight 169 lb 170 lb *Routine HEENT Exam Head: Present normocephalic Eye: Present PERRL ENT: Present mucous membranes moist Comments: Massive tongue swelling... intubatred and sedated. no stridor. *Routine Neck Exam Neck: Present supple; Absent thyromegaly *Routine Respiratory Exam Respiratory: Present patient mechanically ventilated *Routine Cardiovascular Exam Cardiovascular: Present RRR and Normal S1 *Routine Abdominal Exam Abdominal: Present soft *Routine Rectal Exam Rectal:: deferred *Routine Genitalia Exam Genitalia:: deferred *Routine Extremities Exam Extremities: Present pulses intact *Routine Skin Exam Skin: Present intact *Routine Neurological Exam Comments: sedated in ICU Meds Home Medications and Allergies Home Medications Medication Instructions Recorded Confir
--- NOTE | 2022-08-13 15:20 | PC.NURSE ---
REPORT CALLED TO ICU AT [facility]
--- NOTE | 2022-08-13 15:30 | PC.NURSE ---
[facility] NOTIFIED OF TRANSFER
--- NOTE | 2022-08-13 16:35 | PC.NURSE ---
HOUSE CALLED [facility] TO CHECK ON ETA
--- NOTE | 2022-08-13 16:58 | PC.NURSE ---
[facility] HERE FOR TRANSPORT
== END 2022-08-13 17:36 | disposition short-term general hospital (02) | DRG 916 ==
LOC: ER 00:43 → 2ND 02:46 → ER 08:09 → 2ND 11:23
PROVIDERS: Internal Medicine Pulmonary Disease; Admitting Provider Emergency Medicine; Emergency Provider Emergency Medicine; PCP Internal Medicine Adolescent Medicine; Visit Provider Internal Medicine Adolescent Medicine
DX: T78.3XXA Angioneurotic edema, initial encounter (principal); T46.4X5A Adverse effect of angiotensin-converting-enzyme inhibitors, initial encounter; I10 Essential (primary) hypertension; E78.5 Hyperlipidemia, unspecified; J98.8 Other specified respiratory disorders
CPT/HCPCS: 31500; 94002; 36415; 36430; 51702; 71045; 74018; 80048; 80053; 81001; 82803; 85025; 86850; 86900; 86901; 87070; 87205; 99291; C9803; J0330; J2704; P9017; U0003; U0005

== ENCOUNTER 2023-04-24 15:00 | Outpatient (RCR) | payer BC, SELFPAY ==
--- NOTE | 2023-03-03 12:00 | HMH.PTOPEV ---
PT Outpatient Evaluation Rehab PT Outpatient Evaluation Start: 03/03/23 10:53 Freq: Status: Active Protocol: Document 03/03/23 10:53 TONIE (Rec: 03/03/23 12:00 TONIE [id number]) E-signed By Ashwini Boggs, PT Outpatient Therapy Subjective History Subjective History Pt is a 62 y/o female who reports insidious onset of bilateral knee pain sometime this year. Pt reports deep, joint pain/stiffness that is worsened with prolonged sitting or standing. Pt reports she is able to stand/ walk for ~10 minutes then has to rest due to pain. Pt denies having imaging of the knees. Pt also reports random, intermittent stinging pain of vaious areas in the thigh/ knee/abdi that last 3 seconds then abolishes. Pt reports she noticed increased fluid of her entire leg when she saw Dr Mamadou Bardales but this improved when he changed her BP medication. Pt denies localized swelling or redness/ warmth of the knee joints. Pt reports her laundry room is down 1 flight of stairs with 1 HR in her basement and she has difficulty traversing them due to pain/decreased endurance. Pt reports since - she has been mostly sedentary. Pt reports history of chronic low back pain and left plantar fascitiis. Pt denies falls, trauma, paresthesia or use of an AD. Medical History: hypertension, high cholesterol, anxiety Chief Complaint Pain,Stiff,Catches/Locks Symptom Type Ache,Dull Symptoms Relieved By Rest/Positioning Symptoms Aggravated By Standing,Walking Prior Functional Limitations None Current Functional Limitations Housework,Standing,Walking, Stairs Symptom Description Intermittent Level of pain today (0-10) 0 Pain scale - at its best (0-10) 0 Pain scale - at its worst (
--- NOTE | 2023-03-31 18:06 | HMH.RHREAS ---
Rehab Reassessment Rehab OP Re-assessment Start: 03/31/23 16:21 Freq: Status: Active Protocol: Document 03/31/23 16:22 TONIE (Rec: 03/31/23 18:06 [email or web address] [id number]) E-signed By Ashwini Boggs PT Rehab Re-assessment Subjective Subjective Pt reports she has been compliant with her HEP which has helped improve B knee pain overall. Pt reports pain at worst as 5-6.5/10 within the last week. Pt reports she still has stiffness/locking sensation of the knees when standing after prolonged sitting. Objective Objective Notes BLE MMT: hip flexion 5/5, knee ext 5/5, knee flex /5, hip abd/add 02/18, hip ext / Assessment Progress Assessment Progressing as Expected Assessment Notes Pt has attended 3 PT sessions consisting of aerobic exercise , LE stretching/strengthening and modalities with good tolerance. Pt continues to report stifness of the knees after prolonged sitting/ standing. Pt would continue to benefit from skilled PT to further improve bilateral knee pain, LE strength, and functional activity tolerance to improve overall QOL Patient goals met ST/6 Goals Not Met p! severity at worst, hip strength Revised Goals n/a Plan Plan Continue initial POC Frequency of Therapy 2x/week Duration of therapy 4 more weeks Time and Billing Re-Eval Time 9 Re-Eval Billing Units 1 PHYSICIAN CERTIFICATION: I certify the specified therapy services for Bárbara Agustin are required, authorized, and reviewed every 30 days.
== END 2023-04-24 15:05 | disposition home or self-care (01) ==
LOC: PT 15:00
PROVIDERS: PCP Internal Medicine Adolescent Medicine; Visit Provider Internal Medicine Adolescent Medicine
DX: M25.562 Pain in left knee (principal); M25.561 Pain in right knee
CPT/HCPCS: 97010; 97014; 97110; 97112; 97163; 97164; 97530; G0283

== ENCOUNTER → 2023-11-03 15:58 | Outpatient (CLI) | payer MEDICARE, BC, SELFPAY ==
[2023-11-03 16:27] LABS: Basophils % 0.4 % (0.1-2.0); Eosinophils # 0.2 K/mm3 (0.0-0.4); Eosinophils % 2.7 % (0.1-12.0); Hemoglobin 12.3 g/dL (12.2-16.2); Lymphocytes # 2.7 K/mm3 (0.7-4.5); Mean Corpuscular HGB Conc 32.5 g/dL (31.8-35.4); Mean Corpuscular Hemoglobin 27.6 pg (27.0-31.2); Mean Corpuscular Volume 84.8 fl (81-99); Mean Platelet Volume 7.5 fl (7.4-10.4); Monocytes # 0.2 K/mm3 (0.1-1.0); Monocytes % 2.8 % (1.7-9.3); Neutrophils # 3.6 K/mm3 (1.8-7.8); Neutrophils % 54.2 % (37.0-80.0); Platelet Count 269 K/mm3 (142-424); Red Blood Count 4.48 M/mm3 (4.20-5.40); White Blood Count 6.7 K/mm3 (4.8-10.8)
[2023-11-03 16:38] LABS: INR 1.08 (0.9-1.1); Prothrombin Time 11.6 seconds (10.1-12.5)
[2023-11-03 17:35] LABS: Alanine Aminotransferase 504 U/L (12-78); Albumin Level 5.2 g/dl (3.5-5.0); Albumin/Globulin Ratio 1.1 (1.1-1.8); Alkaline Phosphatase 699 U/L (38-126); Anion Gap 11.8 mEq/L (5-15); Aspartate Amino Transferase 632 U/L (14-36); Blood Urea Nitrogen 13 mg/dl (7-17); Calcium 9.8 mg/dl (8.4-10.2); Carbon Dioxide 34 mmol/L (22.0-30.0); Chloride 97 mmol/L (98-107); Estimated Glomerular Filt Rate 63 ml/min (>60); GFR (African American) 76 ML/MIN (>60); Globulin 4.6 g/dL (1.3-3.2); Glucose 111 mg/dl (74-100); Lactate Dehydrogenase 502 U/L (313-618); Sodium 140 mmol/L (136-145); Total Protein,Serum 9.8 g/dl (6.3-8.2)
[2023-11-03 17:41] LABS: Potassium 2.8 mmoL/L (3.5-5.1)
== END ==
PROVIDERS: PCP Internal Medicine Adolescent Medicine; Visit Provider Obstetrics & Gynecology
DX: R53.83 Other fatigue (principal); R17 Unspecified jaundice
CPT/HCPCS: 36415; 80053; 83615; 83735; 85025; 85610; 85730

== ENCOUNTER 2023-11-04 12:06 | Emergency (ER) | payer MEDICARE, BC, SELFPAY ==
[2023-11-04] VITALS (13 sets, daily range): BP systolic 124–160; BP diastolic 65–88; PULSE 50–77; RESP 9–18; TEMP 36.7–36.8; O2SAT 97–100; BMI 29.6
--- NOTE | 2023-11-04 12:23 | ECG_ITS ---
APPROVED REPORT Exam: Resting ECG HR:88 bpm ECG Measurements Heart Rate 88 AXES NE 173 P 67 QRSd 101 QRS 58 QT 292 T -55 QTc 338 Conclusion SINUS RHYTHM WITH FREQUENT VENTRICULAR PREMATURE COMPLEXES LOW QRS VOLTAGE IN PRECORDIAL LEADS [QRS DEFLECTION < 1.0 mV IN CHEST LEADS] ST DEVIATION AND MODERATE T-WAVE ABNORMALITY, CONSIDER INFERIOR ISCHEMIA [-0.1+ mV T-WAVE IN II/aVF] ABNORMAL ECG UNCONFIRMED REPORT Electronically signed by : Doni Bardales MD 11/05/2023 19:47:49
--- NOTE | 2023-11-04 12:34 | CT_ITS ---
FINAL REPORT TECHNIQUE: After the administration of oral and intravenous contrast, axial images were obtained through the abdomen and pelvis by computed tomography. The study was performed with techniques to keep radiation dose as low as reasonably achievable, (ALARA). Individual dose reduction techniques using automated exposure control or adjustment of mA and/or kV according to the patient's size were employed. CLINICAL HISTORY: painless jaundice; 25 lb unintentional wt loss COMPARISON: 06/15/2018 FINDINGS: Abdomen: The lung bases are clear. The liver parenchyma is homogeneous. There is prominent intrahepatic biliary ductal dilatation. The common bile duct is not enlarged. There appears to be narrowing of the common distal duct. In addition, there is an enhancing nodule in the region of the tail the pancreas measuring 1.0 cm in greatest dimension. Compared to previous, the head of the pancreas has a more full appearance and appears larger. The gallbladder is moderately distended. The adrenals and kidneys appear unremarkable. The aorta is normal in caliber. There is no free fluid or adenopathy. Pelvis: The appendix is not identified. The urinary bladder is unremarkable. The uterus is present. There is no pelvic mass or inflammation. IMPRESSION: Signal development of intrahepatic biliary ductal dilatation with apparent compression of the distal common duct. MRCP is recommended. It is unclear if this is related to inflammation or neoplastic changes of the pancreas but the pancreatic head appears larger. New 11 mm enhancing nodule tail of the pancreas. Neoplasm not excluded. Reviewed, Interpreted and Dictated by Waldo Shen MD Transcribed by Claudia Roman Authenticated and [facility]
--- NOTE | 2023-11-04 12:34 | CT_ITS ---
FINAL REPORT TECHNIQUE: Routine axial images were obtained from the lung apices to below the diaphragm following IV contrast administration. Individualized dose reduction techniques using automated exposure control or adjustment of the mA and/or kV according to the patient size were employed. CLINICAL HISTORY: painless jaundice; 25 lb unintentional wt loss COMPARISON: 08/21/2021 FINDINGS: The mediastinum has normal vasculature. There is no mediastinal mass or adenopathy. No pleural or pericardial effusion is seen. There is a mild irregular density in the posterior left upper lobe best seen on image 16 of series 3 probably postinflammatory. IMPRESSION: Vague opacity posterior left upper lobe probably postinflammatory. Reviewed, Interpreted and Dictated by Waldo Shen MD Transcribed by Claudia Roman Authenticated and [facility]
--- NOTE | 2023-11-04 12:45 | HMH.EDGENADL ---
Discharge Plan Disposition Patient Disposition: Xfer Short-Term Hosp Condition: Good Prescriptions Prescriptions: No Action hydrochlorothiazide 50 mg tablet 50 mg PO DAILY sertraline 50 mg tablet 50 mg PO DAILY promethazine-DM 6.25-15 mg/5 mL syrup 5 ml PO Q6HP PRN (Reason: Cough) amlodipine 5 mg tablet 5 mg PO DAILY simvastatin 40 mg tablet 40 mg PO HS Referrals Follow up/Referrals: Doni Bardales MD [Primary Care Provider] - See instructions Clinical Impressions Clinical Impression: Painless jaundice, Dilated bile duct, Hypokalemia, Lesion of pancreas Stand Alone Forms Stand Alone Forms: Transfer Record - ED Discharge ED Provider: Ashwini Chicas General Adult HPI <J Manuel Renee MD - Last Filed: 11/04/23 15:16> General Chief complaint: Recheck/Abnormal Lab/Rx Stated complaint: liver, potassium levels too high/low Time Seen by Provider: 11/04/23 12:25 Mode of Arrival: Ambulatory Source of Information: Patient Limitations: No Limitations Description of Symptoms (Recalled from ER Triage Doc. by RN): c/o yellow color of skin and eyes, Pt states that her obgyn called telling her that her potassium was low, and her liver test were high, in the last 2 months she has noticed this coloring and has had 20 pd weight loss. 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 She states she has been having some abdominal discomfort since August and that she has had 25 pounds of unintentional weight loss and only recently noticed that she was getting jaundiced and having dark or different colored urine. She went to her [employer] FOLDING MACHINE OPERATOR doctor for some vaginal complaints who noticed that she was jaundiced order basic blood work and was found to have transaminases are significantly elevated and a T. bili of 8 with a potassium of 2.8 and she was sent to the emergency department. She denies any significant abdominal pain but states she feels uncomfortable in her abdomen and has not felt like eating much recently. Related Data Home Medications Medication Instructions Recorded Confirmed amlodipine 5 mg tablet 5 mg PO DAILY Hypertension 08/13/22 11/03/23 promethazine-DM 6.25 mg-15 mg/5 mL 5 ml PO Q6HP PRN Cough 08/13/22 11/03/23 oral syrup simvastatin 40 mg tablet 40 mg PO HS Cholesterol 08/13/22 11/03/23 hydrochlorothiazide 50 mg tablet 50 mg PO DAILY 11/03/23 11/03/23 sertraline 50 mg tablet 50 mg PO DAILY 11/03/23 11/03/23 Allergies Allergy/AdvReac Type Severity Reaction Status Date / Time Sulfa (Sulfonamide Allergy Unknown Verified 11/03/23 15:05 Antibiotics) sulfamethoxazole Allergy Unknown Verified 11/03/23 15:05 trimethoprim Allergy Unknown Verified 11/03/23 15:05 tuberculin,PPD,multi-puncture Allergy Unknown I-RASH Verified 11/03/23 15:05 lisinopril Allergy Severe Swelling Uncoded 11/03/23 15:10 of Lip/Tongue/Throat [facility] <Balwinder Renee MD - Last Filed: 11/04/23 15:16> [facility] Disclaimer: The information contained in this section may have been updated after the patient was seen, as this information can be updated by other users. Medical History (Updated 11/04/23 @ 16:34 by Ashwini Chicas DO) Angioedema Anxiety Hyperlipemia Hypertension Surgical History (Updated 11/03/23 @ 15:[address]) No significant past surgical history Family History Other No significant family history Social History Smoking Status: Never smoker alcohol intake: never substance use type: denies use current occupational status: other Travel in the last 8 weeks: None <Balwinder Renee MD - Last Filed: 11/04/23 15:16> ROS Obtained: Yes All systems reviewed & no additional complaints except as documented Phys
--- NOTE | 2023-11-04 13:00 | PC.NURSE ---
Assumed care of patient at this time
[2023-11-04 13:08] LABS: Microscopic, Urine URINE MICROSCOPIC (MICROSCOPIC)
[2023-11-04 13:14] LABS: Appearance,Urine CLEAR (Clear); Bilirubin,Urine 3+ (Negative); Blood, Urine 1+ (Negative); Color,Urine YELLOW (Yellow); Glucose,Urine (UA) Negative (Negative); Ketones,Urine Negative (Negative); Leukocyte Esterase,Urine 2+ (Negative); Nitrate,Urine Negative (Negative); PH,Urine 7.5 (5.0-8.5); Protein,Urine Negative (Negative); Specific Gravity, Urine 1.015 (1.005-1.030); Urobilinogen,Urine 0.2 EU/dl (0.2)
[2023-11-04 13:25] LABS: Basophils % 0.5 % (0.1-2.0); Eosinophils # 0.1 K/mm3 (0.0-0.4); Eosinophils % 1.9 % (0.1-12.0); Hematocrit 32.8 % (37.0-47.0); Hemoglobin 11.3 g/dL (12.2-16.2); Lymphocytes # 2.5 K/mm3 (0.7-4.5); Lymphocytes % 47.4 % (10-50); Mean Corpuscular HGB Conc 34.4 g/dL (31.8-35.4); Mean Corpuscular Volume 84.3 fl (81-99); Mean Platelet Volume 8.8 fl (7.4-10.4); Monocytes # 0.2 K/mm3 (0.1-1.0); Monocytes % 3.5 % (1.7-9.3); Neutrophils # 2.5 K/mm3 (1.8-7.8); Neutrophils % 46.7 % (37.0-80.0); Platelet Count 221 K/mm3 (142-424); Red Blood Count 3.89 M/mm3 (4.20-5.40); Red Cell Distribution Width 16.2 % (11.5-17.5); White Blood Count 5.3 K/mm3 (4.8-10.8)
[2023-11-04 13:29] LABS: Bacteria,Urine Trace /lpf; Other Crystals,Urine Trace /lpf; Squamous Epithelial Cell,Urine Occasional #/hpf (0-5)
[2023-11-04 13:32] LABS: Chloride 98 mmol/L (98-107); Sodium 142 mmol/L (136-145)
[2023-11-04 13:35] LABS: Alanine Aminotransferase 492 U/L (12-78); Albumin/Globulin Ratio 1.1 (1.1-1.8); Alkaline Phosphatase 639 U/L (38-126); Anion Gap 14.4 mEq/L (5-15); Aspartate Amino Transferase 597 U/L (14-36); Bilirubin,Total 7.8 mg/dl (0.2-1.3); Blood Urea Nitrogen 13 mg/dl (7-17); Calcium 9.8 mg/dl (8.4-10.2); Carbon Dioxide 32 mmol/L (22.0-30.0); Creatinine Clearance Estimated 65 mL/min (50-200); Estimated Glomerular Filt Rate 63 ml/min (>60); GFR (African American) 76 ML/MIN (>60); Globulin 4.5 g/dL (1.3-3.2); Glucose 183 mg/dl (74-100); Lipase 64 U/L (23-300); Total Protein,Serum 9.5 g/dl (6.3-8.2)
[2023-11-04 13:36] LABS: Bilirubin,Direct 6.3 mg/dl (0.0-0.4)
[2023-11-04 13:38] LABS: Potassium 2.4 mmoL/L (3.5-5.1)
--- NOTE | 2023-11-04 13:39 | PC.NURSE ---
Critical potassium 2.4, MD aware
[2023-11-04 14:12] LABS: Gamma Glutamyl Transpeptidase 1294 U/L (12-43)
--- NOTE | 2023-11-04 15:24 | PC.NURSE ---
Call out to [facility] for possible transfer
--- NOTE | 2023-11-04 15:33 | PC.NURSE ---
checked on pt no needs at this time,call light at bs
--- NOTE | 2023-11-04 16:17 | PC.NURSE ---
denied patient transfer; We have a call out to [facility] as well as [facility]
--- NOTE | 2023-11-04 16:24 | PC.NURSE ---
Dr. Chicas s/w Dr. Byrd with [facility] for a tele-bed. Coordinator will return call with bed assignment.
--- NOTE | 2023-11-04 18:01 | PC.NURSE ---
[facility] called about patient transfer
--- NOTE | 2023-11-04 18:05 | PC.NURSE ---
Potassium done, disconnected and fluids shut down to KVO.
--- NOTE | 2023-11-04 18:19 | PC.NURSE ---
Called report to Cathy BOOKER on 2G, [facility]
[2023-11-06 06:13] LABS: HBsAg Screen Negative (Negative); HCV Ab Non Reactive (Non Reactive); Hep A Ab, IGM Negative (Negative); Hep B Core Ab, IgM Negative (Negative)
== END 2023-11-04 18:50 | disposition short-term general hospital (02) ==
PROVIDERS: Student in an Organized Health Care Education/Training Program; Emergency Provider Emergency Medicine; PCP Internal Medicine Adolescent Medicine
DX: E87.6 Hypokalemia (principal); K72.90 Hepatic failure, unspecified without coma; I49.3 Ventricular premature depolarization; K86.9 Disease of pancreas, unspecified; K83.8 Other specified diseases of biliary tract; R63.4 Abnormal weight loss; R74.01 Elevation of levels of liver transaminase levels; B96.89 Other specified bacterial agents as the cause of diseases classified elsewhere; E78.5 Hyperlipidemia, unspecified; I10 Essential (primary) hypertension
CPT/HCPCS: 71260; 74177; 80053; 80074; 81001; 82248; 82977; 83690; 85025; 87086; 93005; 96361; 96365; 96375; 99285; J2405; Q9967

== ENCOUNTER 2023-11-30 09:55 | Outpatient (CLI) | payer MEDICARE, BC, SELFPAY ==
--- NOTE | 2023-11-30 10:04 | US_ITS ---
FINAL REPORT TECHNIQUE: Real-time grayscale and color ultrasound of the soft tissues of the neck was performed. CLINICAL HISTORY: .pt felt area rt submandiblar COMPARISON: None FINDINGS: Ultrasound images of the area of concern were obtained. Color Doppler images were submitted. There is an 11 x 3 mm hypoechoic area in the region of the right submandibular gland which may account for the palpable abnormality in this region. No other mass or nodule identified. IMPRESSION: Nonspecific 11 mm presumed left submandibular nodule. Follow-up ultrasound may be helpful. Reviewed, Interpreted and Dictated by Corky Foote III, MD Transcribed by Claudia Roman Authenticated and [facility]
== END 2023-11-30 23:59 ==
PROVIDERS: PCP Internal Medicine Adolescent Medicine; Visit Provider Internal Medicine Adolescent Medicine
DX: R59.0 Localized enlarged lymph nodes (principal)
CPT/HCPCS: 76536

== ENCOUNTER 2023-12-15 12:53 | Day surgery (SDC) | payer MEDICARE, BC, SELFPAY ==
[2023-12-15 13:04] VITALS: BP 133/76; PULSE 92; RESP 16; TEMP 36.3; O2SAT 94
[2023-12-15] MEDS: LACTATED RINGERS 1000ML 1,000 ML 25 ML IV (13:04)
[2023-12-15 13:18] VITALS: O2SAT 94
--- NOTE | 2023-12-15 13:20 | P.PCN_ITS ---
Procedure: Date: 12/15/23 Patient Date of :: 1960 Procedure Performed:: Colonoscopy Indications:: Screening Performing Provider:: Tyler Machado MD Referring Provider:: . Sedation:: Monitored anesthesia care Procedure:: After informed consent was obtained the patient was taken to the endoscopy suite. Sedation ensued after the patient was transferred to the left lateral decubitus position. Pulse, blood pressure, and oxygen saturation were monitored throughout the procedure. Digital rectal exam revealed no significant abnormality. The colonoscope was placed in position. The entire colon was eval uated. The colonoscope was carefully removed and the patient was transferred to recovery in stable condition. Please see findings and specimens below for detail. Findings:: Mild anal stenosis Scattered diverticulosis Bowel preparation moderate Fairly profound spasticity/lack of relaxation Specimens:: None Recommendations:: Repeat colonoscopy in 2-3 years secondary to moderate bowel preparation and spasticity/lack of relaxation. Complications:: No immediate Estimated blood obtained (mL): 0 Colonoscopy Component Colonoscopy Component Was a colonoscopy performed during today's procedure?: Yes Recommended follow up colonoscopy of at least 10 years?: No If no, follow up colonoscopy recommended in ___ years?: (See above) Reason for not recommending >/= 10 yr follow-up interval?: (See above)
[2023-12-15 14:00] VITALS: BP 84/56; PULSE 70; RESP 14; TEMP 36.8; O2SAT 93
--- NOTE | 2023-12-15 14:01 | P.PNANES_ITS ---
[facility] Disclaimer: The information contained in this section may have been updated after the patient was seen, as this information can be updated by other users. Medical History Angioedema Anxiety Hyperlipemia Hypertension Surgical History No significant past surgical history Family History Other No significant family history Social History Smoking Status: Never smoker alcohol intake: never substance use type: denies use current occupational status: other Travel in the last 8 weeks: None caffeine: Yes [facility] Anesthesia Checklist Patient Identification Patient Identification: Verbal (Name & ) Structural Data Admitted From: Home Planned Operative Procedure/s: colonoscopy Consent for Planned Operative Procedure(s) Verified: Yes Additional verifications Anesthesia Reactions: No Airway Assessment Mallampati Score:: Class II C-Spine Mobility Assessed: Yes TMJ Mobility Assessed: Yes Dentition: Good Dentition Neurological Assessment Level of Consciousness: Awake, Alert and Appropriate Anesthesia Plan Anesthesia Risk discussed: Yes Anesthesia Plan: Verified ASA Class: II Anesthesia Type: MAC
[2023-12-15 14:10] VITALS: BP 111/70; PULSE 70; RESP 16; O2SAT 98
[2023-12-15 14:20] VITALS: BP 108/69; PULSE 68; RESP 16; O2SAT 98
== END 2023-12-15 14:30 | disposition home or self-care (01) ==
PROVIDERS: PCP Internal Medicine Adolescent Medicine; Visit Provider Surgery
PROC: 0DJD8ZZ Inspection of Lower Intestinal Tract, Via Natural or Artificial Opening Endoscopic (ICD-10-PCS; CPT 45378; principal; 2023-12-15 14:30)
DX: Z12.11 Encounter for screening for malignant neoplasm of colon (principal); K62.4 Stenosis of anus and rectum; K57.30 Diverticulosis of large intestine without perforation or abscess without bleeding
CPT/HCPCS: G0121

== ENCOUNTER 2024-04-28 15:11 | Outpatient (CLI) | payer MEDICARE, BC, SELFPAY ==
[2024-04-28 15:43] LABS: Basophils # 0.1 K/mm3 (0-0.2); Basophils % 1.3 % (0.1-2.0); Eosinophils # 0.2 K/mm3 (0.0-0.4); Eosinophils % 2.8 % (0.1-12.0); Hematocrit 37.9 % (37.0-47.0); Hemoglobin 11.8 g/dL (12.2-16.2); Lymphocytes # 3.3 K/mm3 (0.7-4.5); Lymphocytes % 48.5 % (10-50); Mean Corpuscular Hemoglobin 27.2 pg (27.0-31.2); Mean Corpuscular Volume 87.7 fl (81-99); Mean Platelet Volume 7.4 fl (7.4-10.4); Monocytes # 0.3 K/mm3 (0.1-1.0); Monocytes % 4.4 % (1.7-9.3); Neutrophils # 2.9 K/mm3 (1.8-7.8); Platelet Count 256 K/mm3 (142-424); Red Blood Count 4.31 M/mm3 (4.20-5.40); Red Cell Distribution Width 15.7 % (11.5-17.5); White Blood Count 6.9 K/mm3 (4.8-10.8)
[2024-04-28 16:13] LABS: Alanine Aminotransferase 41 U/L (12-78); Albumin Level 4.3 g/dl (3.5-5.0); Albumin/Globulin Ratio 1.3 (1.1-1.8); Alkaline Phosphatase 190 U/L (38-126); Anion Gap 11.8 mEq/L (5-15); Aspartate Amino Transferase 55 U/L (14-36); Bilirubin,Total 0.3 mg/dl (0.2-1.3); Blood Urea Nitrogen 20 mg/dl (7-17); Carbon Dioxide 32 mmol/L (22.0-30.0); Chloride 101 mmol/L (98-107); Estimated Glomerular Filt Rate 84 ml/min (>60); GFR (African American) 102 ML/MIN (>60); Globulin 3.4 g/dL (1.3-3.2); Glucose 106 mg/dl (74-100); Potassium 3.8 mmoL/L (3.5-5.1); Sodium 141 mmol/L (136-145); Total Protein,Serum 7.7 g/dl (6.3-8.2)
[2024-04-28 16:42] LABS: Thyroid Stimulating Hormone 1.88 uIU/mL (0.465-4.68)
[2024-05-03 16:38] LABS: D001-IgE D pteronyssinus <0.10 kU/L (Class 0); D002-IgE D farinae <0.10 kU/L (Class 0); E001-IgE Cat Dander <0.10 kU/L (Class 0); E005-IgE Dog Dander <0.10 kU/L (Class 0); E072-IgE Mouse Urine <0.10 kU/L (Class 0); G002-IgE Bermuda Grass <0.10 kU/L (Class 0); G006-IgE Timothy Grass <0.10 kU/L (Class 0); I006-IgE Cockroach, German <0.10 kU/L (Class 0); Immunoglobulin E, Total 83 IU/mL (6-495); M001-IgE Penicillium chrysogen <0.10 kU/L (Class 0); M002-IgE Cladosporium herbarum <0.10 kU/L (Class 0); M003-IgE Aspergillus fumigatus <0.10 kU/L (Class 0); M006-IgE Alternaria alternata <0.10 kU/L (Class 0); T001-IgE Maple/Box Elder <0.10 kU/L (Class 0); T003-IgE Common Silver Birch <0.10 kU/L (Class 0); T006-IgE Cedar, Mountain 0.11 kU/L (Class 0/I); T007-IgE Oak, White <0.10 kU/L (Class 0); T008-IgE Elm, American <0.10 kU/L (Class 0); T010-IgE Walnut <0.10 kU/L (Class 0); T011-IgE Maple Leaf Sycamore <0.10 kU/L (Class 0); T014-IgE Cottonwood <0.10 kU/L (Class 0); T015-IgE Ash, White <0.10 kU/L (Class 0); T022-IgE Pecan, Hickory <0.10 kU/L (Class 0); T070-IgE White Mulberry <0.10 kU/L (Class 0); W001-IgE Ragweed, Short <0.10 kU/L (Class 0); W011-IgE Thistle, Russian <0.10 kU/L (Class 0); W014-IgE Pigweed, Common <0.10 kU/L (Class 0); W018-IgE Sheep Sorrel <0.10 kU/L (Class 0)
== END 2024-04-28 23:59 | disposition home or self-care (01) ==
LOC: LAB 15:12
PROVIDERS: PCP Internal Medicine Adolescent Medicine; Visit Provider Internal Medicine Pulmonary Disease
DX: J30.9 Allergic rhinitis, unspecified; J84.9 Interstitial pulmonary disease, unspecified; R53.83 Other fatigue
CPT/HCPCS: 36415; 80050; 80053; 82785; 84443; 85025; 86003

== ENCOUNTER 2024-07-27 12:30 | Outpatient (CLI) | payer MEDICARE, BC, SELFPAY ==
--- NOTE | 2024-07-27 12:36 | US_ITS ---
FINAL REPORT CLINICAL HISTORY: SWELLING MASS LUMP COMPARISON: None FINDINGS: Limited sonographic images were obtained of the right submandibular area in the region of the palpable abnormality. There is a persistent hypoechoic ovoid nodule in the right submandibular region measuring 12 mm. This previously measured 11 mm. Nodule may represent a submandibular node or possibly a submandibular mass. IMPRESSION: Stable 12 mm nodule at the area of interest may represent submandibular node or possible submandibular mass. Reviewed, Interpreted and Dictated by Corky Foote III, MD Transcribed by Claudia Roman Authenticated and [facility]
== END 2024-07-27 23:59 | disposition home or self-care (01) ==
LOC: RAD 12:30
PROVIDERS: PCP Nurse Practitioner Family; Visit Provider Nurse Practitioner Family
DX: R22.1 Localized swelling, mass and lump, neck (principal)
CPT/HCPCS: 76536

== ENCOUNTER 2024-07-30 16:27 | Emergency (ER) | payer MEDICARE, BC, SELFPAY ==
[2024-07-30 16:50] VITALS: BP 161/95; PULSE 83; RESP 20; TEMP 37; O2SAT 97; BMI 28.1
--- NOTE | 2024-07-30 17:12 | XR_ITS ---
PROCEDURE INFORMATION: Exam: XR Complete Acute Abdomen Series Including Chest Exam date and time: 07/30/2024 5:20 PM Age: 64 years old Clinical indication: Constipation TECHNIQUE: Imaging protocol: Radiologic exam. Complete acute abdomen series, including 2 or more views of the abdomen and a single view chest. COMPARISON: CT ABDOMEN PELVIS W CON 11/04/2023 1:51 PM FINDINGS: Lungs: Normal. No consolidation. Pleural spaces: Normal. No pleural effusions. No pneumothorax. Heart/Mediastinum: Normal. No cardiomegaly. Gastrointestinal tract: Prominent stool within the distal colon and rectum. No bowel dilation. Intraperitoneal space: Normal. No free air. Bones/joints: Normal. No acute fracture. Soft tissues: Normal. IMPRESSION: Prominent stool within the distal colon and rectum, which may be seen with constipation.
--- NOTE | 2024-07-30 17:14 | ED_ITS ---
Discharge Plan Disposition Patient Disposition: Home, Self-Care Condition: Good Prescriptions Prescriptions: New cephalexin 500 mg tablet 500 mg PO BID 7 Days Qty: 14 0RF No Action hydrochlorothiazide 50 mg tablet 50 mg PO DAILY sertraline 50 mg tablet 50 mg PO DAILY albuterol sulfate 90 mcg/actuation HFA aerosol inhaler 2 inh inhalation QID PRN (Reason: shortness of breath or wheezing) 90 Days Qty: 8.5 2RF promethazine-DM 6.25-15 mg/5 mL syrup 5 ml PO Q6HP PRN (Reason: Cough) hydroxyzine pamoate 25 mg capsule 25 mg PO DAILY lubiprostone 24 mcg Capsule 24 mcg PO BID Referrals Follow up/Referrals: Giselle Mann APRN [Primary Care Provider] - See instructions Activity Restrictions/Add. Instructions Additional Instructions/Restrictions: Increase fluids, water and not soda or tea. Can drink cranberry juice or cranberry extract. Wipe front to back Wear cotton underwear Empty bladder after intercourse Start antibiotics immediately and make sure you take the full course although you may start to see improvement over the next 48 hours. You can eat yogurt or take probiotics to decrease diarrhea or yeast infection caused by the antibiotic Be sure to follow-up anytime for new or worsening symptoms in 48 hours for wound urine culture results be sure to let you PCP no recent urine for culture so they can request records and ensure that you have appropriate antibiotic if you are not getting better or getting worse. If symptoms worsen or do not improve return or be seen in the ER. Follow-up with primary care this week. Try mag citrate half a bottle [id number] If symptoms do not improve or worsen return or be seen in the ER Clinical Impressions Clinical Impression: Acute UTI Constipation Qualifiers: Constipation type: slow transit constipation Qualified Code(s): K59.01 - Slow transit constipation Instructions Patient Instructions: Constipation (Alternative Therapy), Increased Dietary Fiber May Improve Constipation Conditions With Pelvic Fabiano, DI for Urinary Tract Infection (UTI), DI for Constipation Print Language Print Language: [place] Discharge ED Provider: Gale ([facility])[place] [facility] [place] General Stated complaint: Can not have bowel movement Mode of Arrival: Ambulatory Source of Information: Patient Limitations: No Limitations Time Seen by Provider: 07/30/24 18:00 Description of Symptoms (Recalled from Triage Doc. by RN): PATIENT STATES SHE IS HAVING DIFFICULTY HAVING A BOWEL MOVEMENT. SHE STATES HER LAST ONE WAS ON THURSDAY AND WAS MOSTLY RUNNY. SHE STATES SHE DID HAVE ONE THIS MORNING BUT IT WAS VERY SMALL. PATIENT STATES SHE THINKS SHE MAY HAVE A HEMORRHOID ALSO HEENT Symptoms (Recalled from RN notes): No Resp Symptoms (Recalled from RN notes): No Skin Symptoms (Recalled from RN notes): No MS Symptoms (Recalled from RN notes): No Functional Status (Recalled from RN notes): WNL History of Present Illness Provider Complaint: 64-year-old female presents for difficulty having a bowel movement. She said her last good bowel movement was on and it was mostly runny states this morning she had a very small bowel movement and she thinks she might have a hemorrhoid. Patient states she has been having trouble with her bowels for over a year has seen her PCP numerous times and had medications adjusted. Last colonoscopy was within a year per patient. Patient states she has has pressure. Related Data Home Medications ?Medication ?Instructions ?Recorded ?Confirmed promethazine-DM 6.25 mg-15 mg/5 mL 5 ml PO Q6HP PRN Cough 08/13/22 04/28/24 oral syrup hydrochlorothiazide 50 mg tablet 50 mg PO DAILY 11/03/23 04/28/24 sertraline 50 mg tablet 50 mg PO DAILY 11/03/23 04/28/24 hydroxyzine pamoate 25 mg capsule 25 mg PO DAILY 12/14/23 04/28/24 lubiprostone 24 mcg capsule 24 mcg PO BID 12/14/23 04/28/24 Previous Rx's ?Medication ?Instructions ?Recorded albuterol sulfate 90 mcg/actuation 2 inh inhalation QID PRN shortness 06/01/24 aerosol inhaler of breath or wheezing 90 days #8.5 grams cephalexin 500 mg tablet 500 mg PO BID 7 days #14 tabs 07/30/24 Allergies Allergy/AdvReac Type Severity Reaction Status Date / Time Sulfa (Sulfonamide Allergy Unknown Verified 04/28/24 14:12 Antibiotics) sulfamethoxazole Allergy Unknown Verified 04/28/24 14:12 trimethoprim Allergy Unknown Verified 04/28/24 14:12 tuberculin,PPD,multi-puncture Allergy Unknown I-RASH Verified 04/28/24 14:12 nylon Allergy Verified 04/28/24 14:12 lisinopril Allergy Severe Swelling Uncoded 04/28/24 14:12 of Lip/Tongue/Throat Worker's Comp Is this a Worker's Comp case?: No [facility] Disclaimer: The information contained in this section may have been updated after the patient was seen, as this information can be updated by other users. Medical History , [employer]) Dyspnea on exertion Generalized anxiety disorder Anxiety Angioedema Hyperlipemia Hypertension Surgical History , WOOD POLE [employer]) No significant past surgical history Family History Other No significant family history Social History , WOOD POLE [employer]) Smoking Status: Never smoker second hand exposure: No alcohol intake: never counseling given: No substance use type: denies use counseling given: No current occupational status: unemployed and other Travel in the last 8 weeks: None adopted: No caregiver/support person: No foster care: No household members: spouse housing: house lives independently: Yes marital status: number of children: 1 number of grandchildren: 1 education level: college current occupation: 4 years at [employer]; [employer] work caffeine: Yes physical activity: none working smoke detector in home: Yes fire extinguisher in home: Yes carbon monox detector in home: No firearms in home: No do you feel safe at home: Yes victim of physical abuse: No victim of emotional abuse: No victim of sexual abuse: No would you like helpful sources: No ROS Obtained: Yes Systems reviewed as appropriate & no additional complaints except as documented Physical Exam General General appearance: alert and in no apparent distress Eye Eye exam: Present normal appearance ENT ENT exam: Present normal exam, normal oropharynx and mucous membranes moist Respiratory Respiratory exam: Present normal lung sounds bilaterally Cardiovascular Cardiovascular exam: Present regular rate and normal rhythm Abdominal Exam Abdominal exam: Present soft and normal bowel sounds; Absent distention or tenderness Rectal Exam Rectal exam: Present normal inspection, normal rectal tone and hemorrhoids (Small external); Absent tenderness Neurological Exam Neurological exam: Present alert and oriented X3 Skin Skin exam: Present warm and intact Medical Decision Making Medical Records Medical records reviewed: Yes I reviewed the patient's medical records. Manan Inquiry Pt receiving controlled substance: No Manan was queried for this patient: No Vital Signs: 07/30/24 16:50 Temperature 98.6 F Temperature Source Oral Pulse Rate [Left Brachial] 83 Respiratory Rate 20 Blood Pressure [Left Arm] 161/95 H Blood Pressure Mean [Left Arm] 117 Blood Pressure Source [Left Arm] Automatic Cuff Blood Pressure Position [Left Arm] Sitting 02 Sat by Pulse Oximetry 97 Oxygen Delivery Method Room Air Orders (Tests/Meds): ORDERS Category Date Time Status Acute abdomen XR series [XR acute abdomen series] Stat Exams 07/30/24 17:12 Ordered
[2024-07-30 18:23] LABS: Apearance,Urine Clear (Clear); Bilirubin,Urine Negative (Negative); Blood, Urine Trace (Negative); Color,Urine Yellow (Yellow); Glucose,Urine (UA) Negative (Negative); Ketones,Urine Negative (Negative); PH,Urine 5.5 (5.0-8.5); Protein,Urine Negative (Negative); Specific Gravity, Urine 1.025 (1.005-1.030); UTC Leukocyte Esterase,Urine Trace (Negative); UTC Nitrate,Urine Negative (Negative); Urobilinogen,Urine 0.2 EU/dl (0.2)
[2024-07-30 18:38] VITALS: BP 161/95; PULSE 83; RESP 20; TEMP 37; O2SAT 97
== END 2024-07-30 18:42 | disposition home or self-care (01) ==
PROVIDERS: Emergency Provider Nurse Practitioner Family; PCP Nurse Practitioner Family
DX: N39.0 Urinary tract infection, site not specified (principal); B96.89 Other specified bacterial agents as the cause of diseases classified elsewhere; K59.01 Slow transit constipation
CPT/HCPCS: 74021; 81003; 87086; 99204; 99212; G0463

== ENCOUNTER 2024-08-02 09:48 | Outpatient (CLI) | payer MEDICARE, BC, SELFPAY | END 2024-08-02 23:59 | disposition home or self-care (01) | LOC: RT 09:48 | PROVIDERS: PCP Nurse Practitioner Family; Visit Provider Internal Medicine Pulmonary Disease | DX: R06.09 Other forms of dyspnea (principal) | CPT/HCPCS: 94060; 94618; 94726; 94729 ==

== ENCOUNTER 2024-09-08 07:58 | Outpatient (CLI) | payer MEDICARE, BC, SELFPAY ==
--- NOTE | 2024-09-08 07:58 | CT_ITS ---
PROCEDURE INFORMATION: Exam: CT Neck With Contrast Exam date and time: 09/08/2024 9:06 AM Age: 64 years old Clinical indication: Mass, lump, or swelling in neck; Right; Additional info: Right submandibular gland mass TECHNIQUE: Imaging protocol: Computed tomography of the neck with contrast. Radiation optimization: All CT scans at this facility use at least one of these dose optimization techniques: automated exposure control; mA and/or kV adjustment per patient size (includes targeted exams where dose is matched to clinical indication); or iterative reconstruction. Contrast material: ISOVUE; Contrast volume: 75 ml; Contrast route: IV; COMPARISON: US SOFT TISSUE HEAD AND NECK 07/27/2024 12:39 PM FINDINGS: Salivary glands: Normal. Glands are normal in size. Pharynx: Unremarkable. No significant tonsillar enlargement. Prevertebral and retropharyngeal spaces: Unremarkable. Larynx: Unremarkable. Epiglottis is normal. Thyroid: Normal. No enlarged or calcified nodules. Trachea: Visualized trachea is unremarkable. Lungs: Unremarkable as visualized. Lymph nodes: Unremarkable. No lymphadenopathy. Few subcentimeter nodes are seen in the right submandibular space near the region of the palpable marker. Bones/joints: Unremarkable. No acute fracture. Soft tissues: Unremarkable. No significant soft tissue swelling. IMPRESSION: No acute findings. No evidence of submandibular mass.
[2024-09-08 08:41] LABS: Blood Urea Nitrogen 14 mg/dl (7-17); Estimated Glomerular Filt Rate 72 ml/min (>60); GFR (African American) 87 ML/MIN (>60)
[2024-09-08] MEDS: IOPAMIDOL-370 (76%);100ML BOTTLE 75 ML IV (09:17)
[2024-09-08] MEDS: SODIUM CHLORIDE 0.9% 10ML SYR (RAD ONLY) 10 ML IV (09:17)
== END 2024-09-08 23:59 | disposition home or self-care (01) ==
LOC: RAD 07:58
PROVIDERS: PCP Nurse Practitioner Family; Visit Provider Nurse Practitioner
DX: K11.8 Other diseases of salivary glands (principal); R60.0 Localized edema
CPT/HCPCS: 36415; 70491; 82565; 84520; Q9967

== ENCOUNTER 2024-12-27 14:37 | Outpatient (CLI) | payer MEDICARE, MEDICAID, SELFPAY ==
--- NOTE | 2024-12-27 14:42 | MM_ITS ---
PROCEDURE INFORMATION: Exam: MG Bilateral Screening 3D Mammography Exam date and time: 12/27/2024 2:44 PM Age: 64 years old Clinical indication: Screening examination TECHNIQUE: Imaging protocol: Bilateral Screening tomosynthesis and 2D mammography including computer-aided detection (CAD) when performed. COMPARISON: 1. MG MM DIG SCREENING MAMM BI W/CAD 12/27/2024 2:44 PM 2. MG MM DIG SCREENING MAMM BI W/CAD 08/04/2019 4:54 PM FINDINGS: MAMMOGRAPHY: Breast composition: The breasts are heterogeneously dense, which may obscure small masses. Mass: No suspicious masses. Architectural distortion: None. Calcifications: No suspicious calcifications. Asymmetric density: None. Skin thickening: None. Axillary adenopathy: None. IMPRESSION: No mammographic evidence of malignancy. Annual screening is recommended unless otherwise clinically indicated. ASSESSMENT: BI-RADS Category 1: Negative.
--- NOTE | 2024-12-27 15:02 | MR_ITS ---
FINAL REPORT TECHNIQUE: Multiplanar MR, without and with gadolinium enhancement CLINICAL HISTORY: MEMORY LOSS COMPARISON: None FINDINGS: MRI HEAD WITH AND WITHOUT CONTRAST: Diffusion sequences show no signal abnormality to indicate acute infarct. No mass, hemorrhage or edema is seen. Ventricles are normal for age. No significant atrophy is identified. There are a few small scattered periventricular and subcortical foci of increased signal identified bilaterally, that likely represent mild chronic microvascular disease in this age group. Major vascular flow voids are intact. Following contrast administration, no mass or abnormal enhancement is seen. IMPRESSION: No acute intracranial abnormality or enhancement is identified. Few small scattered periventricular and subcortical foci of increased signal, likely represent mild chronic microvascular disease in this age group. Reviewed, Interpreted and Dictated by Mary Cabral MD Transcribed by Carol Osman Authenticated and [facility]
[2024-12-27 15:48] LABS: Blood Urea Nitrogen 18 mg/dl (7-17); Estimated Glomerular Filt Rate 84 ml/min (>60); GFR (African American) 101 ML/MIN (>60)
[2024-12-27] MEDS: SODIUM CHLORIDE 0.9% 10ML SYR (RAD ONLY) 10 ML IV (16:15)
[2024-12-27] MEDS: GADOTERIDOL INJ 20ML SYRINGE 15 ML IV (16:15)
== END 2024-12-27 23:59 | disposition home or self-care (01) ==
LOC: RAD 14:38
PROVIDERS: Internal Medicine Adolescent Medicine; PCP Nurse Practitioner Family; Visit Provider Nurse Practitioner Family
DX: Z01.812 Encounter for preprocedural laboratory examination (principal); R41.3 Other amnesia; Z12.31 Encounter for screening mammogram for malignant neoplasm of breast
CPT/HCPCS: 36415; 70553; 77063; 77067; 82565; 84520; A9576

== ENCOUNTER 2025-03-15 12:29 | Outpatient (CLI) | payer MEDICARE, MEDICAID, SELFPAY ==
--- NOTE | 2025-03-15 13:00 | US_ITS ---
FINAL REPORT CLINICAL HISTORY: right submandibular mass COMPARISON: 07/27/2024 FINDINGS: Again identified is a 1.5 x 0.7 cm hypoechoic focus in the right submandibular region, may be related to an enlarged node. This may be slightly larger than the prior exam. There is a 1.2 cm node of the left submandibular gland. Both of these nodes may be adjacent or within the submandibular glands. IMPRESSION: Structures that may be adjacent or within the submandibular glands bilaterally. Recommend infuse neck CT to better characterize and localize. Reviewed, Interpreted and Dictated by Waldo Shen MD Transcribed by Roseann Khan Authenticated and [facility]
== END 2025-03-15 23:59 | disposition home or self-care (01) ==
LOC: RAD 12:30
PROVIDERS: PCP Nurse Practitioner Family; Visit Provider Nurse Practitioner
DX: R93.89 Abnormal findings on diagnostic imaging of other specified body structures (principal); K11.8 Other diseases of salivary glands
CPT/HCPCS: 76536

== ENCOUNTER 2025-04-06 13:27 | Outpatient (CLI) | payer MEDICARE, MEDICAID, SELFPAY ==
--- NOTE | 2025-04-06 13:45 | CT_ITS ---
FINAL REPORT CLINICAL HISTORY: recommended per prior ultrasound large knot on R side of neck, smaller knot on L side, neck under jaw COMPARISON: Prior ultrasound of the neck 03/15/2025 FINDINGS: CT NECK WITH CONTRAST TECHNIQUE: Axial CT with IV contrast administration. This study was performed with techniques to keep radiation doses as low as reasonably achievable, (ALARA). Individualized dose reduction techniques using automated exposure control or adjustment of mA and/or kV according to the patient's size were employed. FINDINGS: The parotid and submandibular glands are unremarkable in appearance. The larynx is normal. No significant cervical adenopathy is appreciated. The lymph nodes seen on the recent ultrasound are not appreciated by CT, implying improvement since that ultrasound exam. The thyroid gland is normal in appearance. IMPRESSION: 1. No significant adenopathy is appreciated by CT examination, suggesting improvement since the prior ultrasound of 03/15/2025. This study was performed using automated techniques to achieve radiation exposure as low as reasonably achievable Reviewed, Interpreted and Dictated by Mary Cabral MD Transcribed by Carol Osman Authenticated and [facility]
[2025-04-06 14:00] LABS: Blood Urea Nitrogen 13 mg/dl (7-17); Estimated Glomerular Filt Rate 72 ml/min (>60); GFR (African American) 87 ML/MIN (>60)
[2025-04-06] MEDS: IOPAMIDOL-370 (76%);100ML BOTTLE 75 ML IV (14:32)
[2025-04-06] MEDS: SODIUM CHLORIDE 0.9% 10ML SYR (RAD ONLY) 10 ML IV (14:32)
== END 2025-04-06 23:59 | disposition home or self-care (01) ==
LOC: RAD 13:29
PROVIDERS: PCP Nurse Practitioner Family; Visit Provider Nurse Practitioner
DX: K11.8 Other diseases of salivary glands (principal)
CPT/HCPCS: 36415; 70491; 82565; 84520; Q9967

== ENCOUNTER 2025-08-08 08:18 | Outpatient (CLI) | payer MEDICARE, BC, MEDICAID, SELFPAY ==
--- NOTE | 2025-08-08 08:21 | XR_ITS ---
FINAL REPORT TECHNIQUE: Bone densitometry calculations of the lumbar spine and left hip were obtained. CLINICAL HISTORY: SCREENING FINDINGS: Using L1-4, the bone mineral density of the spine is 1.085 g/cm2, corresponding to T-score of 0.3 and a Z score of 2.3. This is within the range of normal. Using the left hip, the bone mineral density of the femoral neck is 0.924 g/cm2, corresponding to a T-score of 0.7 and a Z-score of 2.3. This is within the range of normal. Using the right hip, the bone mineral density of the femoral neck is 0.971 g/cm2, corresponding to a T-score of 1.1 and a Z-score of 2.7. This is within the range of normal. NOTE: T-score: Standard deviation compared with peak bone mass of young adult mean. *Following the recommendations of the International Society of Bone densitometry, classification of hip BMD is based on the lower of two T-scores; total hip or femoral neck. IMPRESSION: 1. Bone mineral density of the lumbar spine within the range of normal. 2. Bone mineral density of the bilateral femoral neck within the range of normal. FRAX was not reported because all of the T-scores are at or above -1.0. Reviewed, Interpreted and Dictated by Cassie Hurst MD Transcribed by Roseann Khan Authenticated and [facility]
== END 2025-08-08 23:59 | disposition home or self-care (01) ==
LOC: RAD 08:19
PROVIDERS: PCP Nurse Practitioner Family; Visit Provider Internal Medicine Adolescent Medicine
DX: Z13.820 Encounter for screening for osteoporosis (principal); Z78.0 Asymptomatic menopausal state
CPT/HCPCS: 77080